=== PATIENT | female | born 1995 | race Caucasian/White ===

== ENCOUNTER → 2017-04-30 | Outpatient (CLI) | payer BC ==
[2017-05-04 01:31] LABS: CHLAMYDIA TRACH RNA*** NOT DETECTED (NOT DETECTED); GC (NEIS GONORRHOEAE)RNA** NOT DETECTED (NOT DETECTED)
== END | disposition home or self-care (01) ==
LOC: C.LABSPEC 13:52
PROVIDERS: ATTEND Physician Assistant
DX: Z01.419 Encounter for gynecological examination (general) (routine) without abnormal findings (principal)

== ENCOUNTER 2022-03-05 07:43 | Inpatient (IN) ==
[2022-03-05] MEDS ORDERED: OXYTOCIN 30 UNITS/500 ML BAG IV PRN (09:04)
[2022-03-05 09:59] LABS: Hematocrit (blood only) 36.6 % (37-47); Hemoglobin 12.7 g/dL (12.0-16.0); Mean Corpuscular Hemoglobin 31.1 pg (25-34); Mean Corpuscular Hgb Conc 34.7 g/dL (32-36); Mean Corpuscular Volume 89.5 fL (80-100); Mean Platelet Volume 11.3 fL (7.4-10.4); Nucleated RBC # (auto) 0.32 K/uL (0-0); Nucleated RBC % (auto) 2.3 %; Platelet Count 236 K/uL (130-400); RDW Coefficient of Variation 13.5 % (11.5-14.5); RDW Standard Deviation 44.2 fL (36.4-46.3); Red Blood Count 4.09 M/uL (4.2-5.4); White Blood Count 14.12 K/uL (4.8-10.8)
[2022-03-05] MEDS: LACTATED RINGER'S 1,000 ML IV PRN ×2 (10:36→11:40)
[2022-03-05] MEDS ORDERED: SODIUM CHLORIDE 0.9% 1000ML 1,000 ML IV PRN (10:37)
[2022-03-05] MEDS ORDERED: DEXTROSE 50% 50 ML SYRINGE IV PRN (10:37)
[2022-03-05] MEDS ORDERED: INSULIN REGULAR 250 UNITS in SODIUM CHLORIDE 0.9% 247.5 ML IV PRN (10:37)
--- NOTE | 2022-03-05 10:39 | History & Physical Report ---
Date of Service March 05, 2022 Assessment & Plan (1) Cholestasis during , antepartum: Plan: Admit to L&D. EFM/toco. Labs. Diabetes insulin/D5 protocol ordered. Will plan for epidural, will anticipate getting a better cervix exam when patient is more comfortable. Pitocin. Admission and Anticipated Discharge Date Admission Date: March 05, 2022 History of Present Illness Chief Complaint: IOL for cholestasis of Primary Care Provider: Darren Whitaker MD 26yo @ 10/20 here for IOL. She has symptomatic cholestasis of with elevated bile acids, has been recommended for delivery between 36 and 37w. Additionally, she is DM type 2, on insulin during the . Rec'd 2 doses of celestone, 24h apart. GBS neg. Polyhydramnios, 9cm on 03/02 US. Cephalic. [place] bulb last night, fell out prior to her leaving L&D. Allergies Allergy/AdvReac Type Severity Reaction Status Date / Time No Known Drug Allergies Allergy Unknown Verified 03/05/22 08:01 Home Medications Medication Instructions Recorded Confirmed Type prenat.vits,elke,[id number] 1 ea PO DAILY 01/27/21 03/04/22 History pen needle, diabetic 32 gauge x #120 ea 10/31/21 03/04/22 Rx 5/32" (BD Ultra-Fine [place] Pen Needle) acetone (urine) test (Ketone Urine #50 ea 11/14/21 03/04/22 Rx Test) lancets (Accu-Chek Softclix #150 ea 01/07/22 03/04/22 Rx Lancets) blood sugar diagnostic (Accu-Chek #150 ea 01/08/22 03/04/22 Rx Kimberly Plus test strp) blood-glucose meter (Accu-Chek #1 ea 01/08/22 03/04/22 Rx Kimberly Plus Meter) aspirin 81 mg tablet,delayed 81 mg PO DAILY 01/26/22 03/05/22 History release (Adult Low Dose Aspirin) insulin detemir U-100 100 unit/mL 26 unit SUBCUT HS ml 02/23/22 03/05/22 History (3 mL) subcutaneous pen (Levemir FlexTouch U-100 Insulin) insulin glulisine U-100 100 20 unit SUBCUT DAILY ml 02/23/22 03/05/22 History unit/mL subcutaneous pen (Apidra SoloStar U-100 Insulin) Patient History Medical History Obesity T2DM (type 2 diabetes mellitus) Surgical History No history of previous surgery Family History Mother Hepatitis Grandfather (Paternal) Colorectal cancer Uncle Colorectal cancer Denies family history of Ovarian cancer Breast cancer Uterine cancer Social History Smoking Status: Never smoker Hx Alcohol Use: No Hx Substance Use: No Preferred Language: Austrian Communication Ability: Effective Hybrid [employer]iv[employer] Trader Required: No Beliefs That Will Affect Care: None marital status: Single marital status details: kelley Starr (33) [phone] Current Living Situation: Significant Other Current Living Situation Comment: lives with FOCeasar, 1 dog. 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 Feels Safe at Home: Yes Safety Concerns: Feels Safe At This Time Review of Systems All systems reviewed & are unremarkable except as noted in HPI & below Physical Exam Physical Exam: FHT Cat 1 [place] none SVE unable to fully get to cervix d/t patient discomfort with exam. Cervix is presumably 4cm d/t [place] balloon falling out last night. 4/50/- 3/mod/mid, EFW 6-7 Limited bedside US: cephalic, +movement, +cardiac activity, large amount of fluid Constitutional: WD/WN, vitals as above Respiratory: normal respiratory effort, lungs clear to auscultation no respiratory distress Cardiovascular: Rate/Rhythm: regular rate and regular rhythm Gastrointestinal (Abdomen): Inspection/Auscultation: abdomen normal to inspection Percussion/Palpation: abdomen soft; abdomen nontender Gravid. No s/s chorio or abruption. Skin: no rashes, warm and dry Psychiatric: A+Ox3, euthymic affect Results & Data ([facility]) Vital Signs (Past 12 Hours) Vital Signs Temp Pulse Resp BP 03/05/22 08:07 36.8 C 101 H 18 128/70 03/05/22 07:57 101 H 128/70 Coding Level of Care Code None Diagnoses Cholestasis during , antepartum O26.619; K83.1
[2022-03-05] MEDS: CALCIUM CARBONATE 500 MG CHEWABLE TAB PO PRN ×2 (10:53→15:45)
[2022-03-05] MEDS: OXYTOCIN 30 UNITS/500 ML BAG IV PRN (11:04)
[2022-03-05] MEDS: DEXTROSE 5% 1,000 ML IV PRN ×2 (12:36→23:42)
[2022-03-05] MEDS ORDERED: ePHEDrine sulfate 50 MG/ML AMP ONE (12:53)
[2022-03-05] MEDS ORDERED: SODIUM CHLORIDE 0.9% INJ 10 ML VIAL ONE (12:54)
[2022-03-05] MEDS ORDERED: fentaNYL citrate 100 MCG/2 ML VIAL ONE (12:54)
[2022-03-05] MEDS ORDERED: fentaNYL 2MCG/ML ROPIVACAINE 1.25MG/ML 100 ML BAG EPI ONE (12:54)
[2022-03-05] MEDS ORDERED: BUPIVACAINE 0.25% 30 ML VIAL ONE (12:54)
[2022-03-05] MEDS ORDERED: NALOXONE HCL 1 MG in SODIUM CHLORIDE 0.9% 1000ML 1,000 ML IV PRN (13:16)
[2022-03-05] MEDS ORDERED: ONDANSETRON INJ 2 MG/ML 2 ML VIAL IV PRN (13:16)
[2022-03-05] MEDS ORDERED: diphenhydrAMINE 50 MG/ML VIAL IV PRN (13:16)
[2022-03-05] MEDS ORDERED: NALBUPHINE HCL INJ 10 MG/ML AMP IV PRN (13:16)
[2022-03-05] MEDS ORDERED: ePHEDrine sulfate 50 MG/ML AMP IV PRN (13:16)
[2022-03-05] MEDS ORDERED: NALOXONE HCL 0.4 MG/1 ML VIAL/CARP IV PRN (13:16)
--- NOTE | 2022-03-05 13:24 | Anesthesiology Consultation ---
Date of Service March 05, 2022 Assessment & Plan (1) Encounter for pre-operative examination: Chart Review Chart Review: Acceptable Risk for Labor Epidural Consults Requested none ASA ASA2 Proposed Anesthesia Anesthesia Type: Labor Epidural Risk / Benefits Reviewed With: PT / POA / Parent / Guardian, Accepts Plan and Informed Consent Obtained History Height/Weight Height: 5 ft 3 in Weight: 92.323 kg Allergies Allergy/AdvReac Type Severity Reaction Status Date / Time No Known Drug Allergies Allergy Unknown Verified 03/05/22 08:01 Medications Home Medications Medication Instructions Recorded Confirmed Last Taken prenat.vits,elke,[id number]-xynoj 1 ea PO DAILY 01/27/21 03/04/22 03/05/22 01:00 pen needle, diabetic 32 gauge x #120 ea 10/31/21 03/04/22 Unknown " (BD Ultra-Fine Moriah Pen Needle) acetone (urine) test (Ketone Urine #50 ea 11/14/21 03/04/22 Unknown Test) lancets (Accu-Chek Softclix #150 ea 01/07/22 03/04/22 Unknown Lancets) blood sugar diagnostic (Accu-Chek #150 ea 01/08/22 03/04/22 Unknown Kimberly Plus test strp) blood-glucose meter (Accu-Chek #1 ea 01/08/22 03/04/22 Unknown Kimberly Plus Meter) aspirin 81 mg tablet,delayed 81 mg PO DAILY 01/26/22 03/05/22 03/03/22 21:00 release (Adult Low Dose Aspirin) insulin detemir U-100 100 unit/mL 26 unit SUBCUT HS ml 02/23/22 03/05/22 03/05/22 01:00 (3 mL) subcutaneous pen (Levemir FlexTouch U-100 Insulin) insulin glulisine U-100 100 20 unit SUBCUT DAILY ml 02/23/22 03/05/22 03/05/22 06:30 unit/mL subcutaneous pen (Apidra SoloStar U-100 Insulin) Active Medications Generic Name Dose Route Start Last Admin Trade Name Freq PRN Reason Stop Dose Admin Calcium Carbonate 1,500 mg 03/05/22 10:33 03/05/22 10:53 Calcium Carbonate 500 Mg Chewable Tab PO 04/04/22 10:32 1,500 mg Q6 PRN Administration Indigestion Oxytocin 30 units in 500 mls @ 9 mls/hr 03/05/22 09:04 03/05/22 13:05 Pitocin IV 03/07/22 09:03 0.54 units/hr .Q24H PRN 9 mls/hr Labor Induction/Augmentation Titration Protocol 0.54 UNITS/HR Lactated Ringer's 1,000 mls @ 125 mls/hr 03/05/22 09:04 03/05/22 11:40 Lr IV 03/07/22 09:03 125 mls/hr .Q8H PRN Administration L&D Protocol Protocol Dextrose 1,000 mls @ 100 mls/hr 03/05/22 10:37 03/05/22 12:36 D5w IV 04/04/22 10:36 100 mls/hr .Q10H PRN Administration BSG 180 or below Protocol Past Medical History Medical History Obesity T2DM (type 2 diabetes mellitus) Exercise / Class Metabolic Activity II 4-5 Yardwork/Stairs/Walk up hill Past Family History Family History Mother Hepatitis Grandfather (Paternal) Colorectal cancer Uncle Colorectal cancer Denies family history of Ovarian cancer Breast cancer Uterine cancer Past Surgical History Surgical History No history of previous surgery Past Anesthesia History No Hx of Anesthesia Complications and No Family Hx of Anesthesia Complications History of PONV No Hx of PONV and No Hx of Motion Sickness Social History Smoking Status: Never smoker Hx Alcohol Use: No Hx Substance Use: No substance use type: does not use Physical Exam Vital Signs Last Vital Signs Temp 98.2 F 03/05/22 08:07 Pulse 91 H 03/05/22 13:21 Resp 18 03/05/22 08:07 BP 136/80 03/05/22 13:21 Pulse Ox 99 03/05/22 13:17 ENMT Mouth: no dentition abnormality Thyromental Distance: > or= 3.5 Finger Breadths Mallampati Class: II Neck normal visual inspection Respiratory normal respiratory effort Auscultation: lungs clear to auscultation bilaterally Cardiovascular Rate/Rhythm: regular rate and regular rhythm Testing Laboratory Results 03/05/22 09:36 03/05/22 03/05/22 03/05/22 12:34 11:22 09:04 POC Glucose 79 91 124 H
[2022-03-05] MEDS ORDERED: FAMOTIDINE 20 MG TAB PO STA (14:20)
--- NOTE | 2022-03-05 14:53 | Labor Progress Brief Note ---
Date of Service March 05, 2022 Subjective Comfortable with epidural. FHT Cat 1 [place] Q 2-3 SVE /-3 - baby is still high, however head IS palpable now. Continue pitocin. Head is not well engaged in pelvis, do not recommend AROM at this time. Assessment & Plan Admission and Anticipated Discharge Date Admission Date: March 05, 2022 Results & Data ([facility]) Vital Signs (Past 12 Hours) Vital Signs Temp Pulse Resp BP Pulse Ox 03/05/22 14:47 94 H 100 03/05/22 14:43 82 134/87 03/05/22 14:42 78 100 03/05/22 14:37 89 100 03/05/22 14:32 127 H 99 03/05/22 14:27 100 H 160/93 H 100 03/05/22 14:22 97 H 99 03/05/22 14:17 92 H 100 03/05/22 14:12 99 H 139/94 99 03/05/22 14:07 99 H 100 03/05/22 14:02 94 H 99 03/05/22 14:00 36.7 C 16 03/05/22 13:57 90 98 03/05/22 13:56 97 H 123/79 03/05/22 13:54 81 126/81 03/05/22 13:52 79 137/85 98 03/05/22 13:47 88 98 03/05/22 13:42 97 H 97 03/05/22 13:37 100 H 98 03/05/22 13:32 88 98 03/05/22 13:27 96 H 99 03/05/22 13:22 103 H 98 03/05/22 13:21 91 H 136/80 03/05/22 13:17 95 H 99 03/05/22 13:12 93 H 98 03/05/22 13:07 92 H 98 03/05/22 08:07 36.8 C 101 H 18 128/70 03/05/22 07:57 101 H 128/70 Coding Level of Care Code None
--- NOTE | 2022-03-05 18:55 | Labor Progress Brief Note ---
Date of Service March 05, 2022 Subjective Comfortable with epidural. FHT Cat 1 [place] Q 2-4 Pit at 19 SVE 4-5/80/-2 station has moved into the pelvis more than previous exam, therefore AROM performed for copious amount of clear fluid. Assessment & Plan Admission and Anticipated Discharge Date Admission Date: March 05, 2022 Results & Data ([facility]) Vital Signs (Past 12 Hours) Vital Signs Temp Pulse Resp BP Pulse Ox 03/05/22 18:47 92 H 96 03/05/22 18:42 88 98 03/05/22 18:39 86 143/79 H 03/05/22 18:37 75 97 03/05/22 18:32 76 97 03/05/22 18:27 77 96 03/05/22 18:24 80 140/82 03/05/22 18:22 68 97 03/05/22 18:17 75 96 03/05/22 18:12 79 98 03/05/22 18:10 78 143/77 H 03/05/22 18:07 78 97 03/05/22 18:02 81 98 03/05/22 17:57 73 98 03/05/22 17:55 96 H 125/77 03/05/22 17:52 106 H 97 03/05/22 17:47 107 H 98 03/05/22 17:42 95 H 99 03/05/22 17:41 99 H 135/78 03/05/22 17:37 92 H 98 03/05/22 17:32 84 98 03/05/22 17:27 84 97 03/05/22 17:24 89 132/75 03/05/22 17:22 76 97 03/05/22 17:17 83 97 03/05/22 17:12 93 H 99 03/05/22 17:10 88 142/84 H 03/05/22 17:07 85 98 03/05/22 17:02 84 99 03/05/22 16:57 97 H 99 03/05/22 16:54 96 H 131/88 03/05/22 16:52 90 98 03/05/22 16:47 89 98 03/05/22 16:42 101 H 99 03/05/22 16:39 101 H 129/81 03/05/22 16:37 99 H 100 03/05/22 16:32 90 99 03/05/22 16:27 89 99 03/05/22 16:24 85 134/85 03/05/22 16:22 88 99 03/05/22 16:17 85 100 03/05/22 16:15 36.7 C 03/05/22 16:12 92 H 100 03/05/22 16:07 91 H 99 03/05/22 16:02 83 100 03/05/22 15:57 82 99 03/05/22 15:54 93 H 118/55 L 03/05/22 15:52 94 H 99 03/05/22 15:47 124 H 99 03/05/22 15:42 86 98 03/05/22 15:39 88 149/88 H 03/05/22 15:37 84 100 03/05/22 15:32 88 100 03/05/22 15:27 82 97 03/05/22 15:24 86 141/81 H 91 03/05/22 15:22 87 97 03/05/22 15:17 75 98 03/05/22 15:12 76 98 03/05/22 15:10 78 153/88 H 03/05/22 15:07 78 99 03/05/22 15:02 93 H 99 03/05/22 14:57 87 99 03/05/22 14:52 79 98 03/05/22 14:47 94 H 100 03/05/22 14:43 82 134/87 03/05/22 14:42 78 100 03/05/22 14:37 89 100 03/05/22 14:32 127 H 99 03/05/22 14:27 100 H 160/93 H 100 03/05/22 14:22 97 H 99 03/05/22 14:17 92 H 100 03/05/22 14:12 99 H 139/94 99 03/05/22 14:07 99 H 100 03/05/22 14:02 94 H 99 03/05/22 14:00 36.7 C 16 03/05/22 13:57 90 98 03/05/22 13:56 97 H 123/79 03/05/22 13:54 81 126/81 03/05/22 13:52 79 137/85 98 03/05/22 13:47 88 98 03/05/22 13:42 97 H 97 03/05/22 13:37 100 H 98 03/05/22 13:32 88 98 03/05/22 13:27 96 H 99 03/05/22 13:22 103 H 98 03/05/22 13:21 91 H 136/80 03/05/22 13:17 95 H 99 03/05/22 13:12 93 H 98 03/05/22 13:07 92 H 98 03/05/22 08:07 36.8 C 101 H 18 128/70 03/05/22 07:57 101 H 128/70 Coding Level of Care Code None
--- NOTE | 2022-03-05 22:39 | Labor Progress Brief Note ---
Date of Service March 05, 2022 Subjective Comfortable, but feeling a bit more pressure. FHT Cat 1 [place] Q2-4 SVE //-1 FSE/IUPC placed. Assessment & Plan Admission and Anticipated Discharge Date Admission Date: March 05, 2022 Results & Data ([facility]) Vital Signs (Past 12 Hours) Vital Signs Temp Pulse Resp BP Pulse Ox 03/05/22 22:32 76 98 03/05/22 22:27 77 98 03/05/22 22:24 71 134/64 03/05/22 22:22 70 96 03/05/22 22:17 73 96 03/05/22 22:12 69 98 03/05/22 22:09 72 130/60 03/05/22 22:07 73 97 03/05/22 22:02 92 H 98 03/05/22 21:57 87 98 03/05/22 21:55 93 H 146/80 H 03/05/22 21:52 81 97 03/05/22 21:47 108 H 98 03/05/22 21:44 86 147/73 H 03/05/22 21:42 89 98 03/05/22 21:39 85 143/76 H 03/05/22 21:37 91 H 99 03/05/22 21:32 79 98 03/05/22 21:27 74 99 03/05/22 21:24 74 128/62 03/05/22 21:22 74 97 03/05/22 21:17 73 97 03/05/22 21:12 72 96 03/05/22 21:09 74 127/65 03/05/22 21:07 75 98 03/05/22 21:02 71 98 03/05/22 21:00 37.4 C 03/05/22 20:57 71 97 03/05/22 20:54 70 113/59 L 03/05/22 20:52 71 96 03/05/22 20:47 74 96 03/05/22 20:42 74 97 03/05/22 20:39 88 135/82 03/05/22 20:37 84 98 03/05/22 20:32 70 95 03/05/22 20:27 73 95 03/05/22 20:24 73 121/57 L 03/05/22 20:22 72 95 03/05/22 20:17 70 97 03/05/22 20:12 71 96 03/05/22 20:09 67 116/57 L 03/05/22 20:07 67 96 03/05/22 20:02 81 97 03/05/22 20:00 18 03/05/22 19:57 71 96 03/05/22 19:54 70 119/58 L 03/05/22 19:52 69 96 03/05/22 19:47 71 96 03/05/22 19:43 84 93 03/05/22 19:42 96 H 97 03/05/22 19:39 89 131/81 03/05/22 19:37 76 96 03/05/22 19:32 104 H 98 03/05/22 19:27 92 H 97 03/05/22 19:25 86 139/84 03/05/22 19:22 77 97 03/05/22 19:20 37.2 C 18 03/05/22 19:17 86 97 03/05/22 19:12 92 H 97 03/05/22 19:09 86 136/76 03/05/22 19:07 92 H 96 03/05/22 19:02 85 97 03/05/22 18:57 82 97 03/05/22 18:54 80 143/81 H 03/05/22 18:52 81 98 03/05/22 18:50 36.8 C 18 03/05/22 18:47 92 H 96 03/05/22 18:42 88 98 03/05/22 18:39 86 143/79 H 03/05/22 18:37 75 97 03/05/22 18:32 76 97 03/05/22 18:27 77 96 03/05/22 18:24 80 140/82 03/05/22 18:22 68 97 03/05/22 18:17 75 96 03/05/22 18:12 79 98 03/05/22 18:10 78 143/77 H 03/05/22 18:07 78 97 03/05/22 18:02 81 98 03/05/22 17:57 73 98 03/05/22 17:55 96 H 125/77 03/05/22 17:52 106 H 97 03/05/22 17:47 107 H 98 03/05/22 17:42 95 H 99 03/05/22 17:41 99 H 135/78 03/05/22 17:37 92 H 98 03/05/22 17:32 84 98 03/05/22 17:27 84 97 03/05/22 17:24 89 132/75 03/05/22 17:22 76 97 03/05/22 17:17 83 97 03/05/22 17:12 93 H 99 03/05/22 17:10 88 142/84 H 03/05/22 17:07 85 98 03/05/22 17:02 84 99 03/05/22 16:57 97 H 99 03/05/22 16:54 96 H 131/88 03/05/22 16:52 90 98 03/05/22 16:47 89 98 03/05/22 16:42 101 H 99 03/05/22 16:39 101 H 129/81 03/05/22 16:37 99 H 100 03/05/22 16:32 90 99 03/05/22 16:27 89 99 03/05/22 16:24 85 134/85 03/05/22 16:22 88 99 03/05/22 16:17 85 100 03/05/22 16:15 36.7 C 03/05/22 16:12 92 H 100 03/05/22 16:07 91 H 99 03/05/22 16:02 83 100 03/05/22 15:57 82 99 03/05/22 15:54 93 H 118/55 L 03/05/22 15:52 94 H 99 03/05/22 15:47 124 H 99 03/05/22 15:42 86 98 03/05/22 15:39 88 149/88 H 03/05/22 15:37 84 100 03/05/22 15:32 88 100 03/05/22 15:27 82 97 03/05/22 15:24 86 141/81 H 91 03/05/22 15:22 87 97 03/05/22 15:17 75 98 03/05/22 15:12 76 98 03/05/22 15:10 78 153/88 H 03/05/22 15:07 78 99 03/05/22 15:02 93 H 99 03/05/22 14:57 87 99 03/05/22 14:52 79 98 03/05/22 14:47 94 H 100 03/05/22 14:43 82 134/87 06/22 14:42 78 100 03/05/22 14:37 89 100 03/05/22 14:32 127 H 99 03/05/22 14:27 100 H 160/93 H 100 03/05/22 14:22 97 H 99 03/05/22 14:17 92 H 100 03/05/22 14:12 99 H 139/94 99 03/05/22 14:07 99 H 100 03/05/22 14:02 94 H 99 03/05/22 14:00 36.7 C 16 03/05/22 13:57 90 98 03/05/22 13:56 97 H 123/79 03/05/22 13:54 81 126/81 03/05/22 13:52 79 137/85 98 03/05/22 13:47 88 98 03/05/22 13:42 97 H 97 03/05/22 13:37 100 H 98 03/05/22 13:32 88 98 03/05/22 13:27 96 H 99 03/05/22 13:22 103 H 98 03/05/22 13:21 91 H 136/80 03/05/22 13:17 95 H 99 03/05/22 13:12 93 H 98 03/05/22 13:07 92 H 98 Coding Level of Care Code None
[2022-03-05 23:46] LABS: Albumin Globulin Ratio 1.2 (0.9-2); Albumin Level 2.8 gm/dl (3.4-5.0); BUN Creatinine Ratio 18.2 (10-20); Bilirubin,Total 1.1 mg/dl (0.2-1.0); Calcium 9.3 mg/dl (8.5-10.1); Creatinine Clr Calc Pharmacy 55.8 ml/min; Est GFR (African American) 49.2 ml/min; Est GFR (Non-African American) 42.4 ml/min; Globulin 2.4 gm/dl (2.5-4.0); Potassium 3.7 mmol/L (3.5-5.1); Total Protein 5.2 gm/dl (6.0-8.3)
[2022-03-05 23:47] LABS: Hematocrit (blood only) 35.7 % (37-47); Hemoglobin 12.3 g/dL (12.0-16.0); Mean Corpuscular Hemoglobin 30.9 pg (25-34); Mean Corpuscular Hgb Conc 34.5 g/dL (32-36); Mean Corpuscular Volume 89.7 fL (80-100); Mean Platelet Volume 11.5 fL (7.4-10.4); Nucleated RBC # (auto) 0.35 K/uL (0-0); Platelet Count 196 K/uL (130-400); RDW Coefficient of Variation 13.7 % (11.5-14.5); RDW Standard Deviation 44.6 fL (36.4-46.3); Red Blood Count 3.98 M/uL (4.2-5.4)
[2022-03-06] MEDS: fentaNYL 2MCG/ML ROPIVACAINE 1.25MG/ML 100 ML BAG EPI PRN ×2 (01:04→09:05)
[2022-03-06] MEDS ORDERED: MAG SULFATE 4GM BOLUS FROM BAG IV ONE (02:42)
--- NOTE | 2022-03-06 03:13 | Labor Progress Brief Note ---
Date of Service March 06, 2022 Subjective Comfortable in room. snoring. FHT Cat 1 [place] Q 2-4, have decreased over the past hour or so - were previously adequate. SVE /1 Discussed lab results with patient - liver enzymes have more than doubled, creatinine is elevated. Platelets are normal. BPs have fluxuated between elevated and normal. Asymptomatic - no AQUINO, vision changes. Given these lab findings, I discussed with patient that I would recommend treating for preeclampsia with magnesium. Reviewed RBA/side effects. Questions answered. While LFTs may be elevated with cholestasis, they typically do not double - hers have done more than this. Will plan for magnesium and Q6h lab checks. Patient agreeable. Assessment & Plan Admission and Anticipated Discharge Date Admission Date: March 05, 2022 Results & Data ([facility]) Vital Signs (Past 12 Hours) Vital Signs Temp Pulse Resp BP Pulse Ox 03/06/22 03:09 87 137/74 03/06/22 03:07 77 97 03/06/22 03:02 89 98 03/06/22 02:58 74 94 03/06/22 02:57 78 94 03/06/22 02:54 75 135/63 03/06/22 02:52 77 95 03/06/22 02:47 81 96 03/06/22 02:42 70 95 03/06/22 02:39 88 123/74 03/06/22 02:37 67 95 03/06/22 02:33 71 94 03/06/22 02:32 70 95 03/06/22 02:28 70 94 03/06/22 02:27 71 94 03/06/22 02:24 59 L 124/60 03/06/22 02:22 72 97 03/06/22 02:21 74 94 03/06/22 02:17 70 95 03/06/22 02:14 69 94 03/06/22 02:12 69 94 03/06/22 02:10 69 125/58 L 03/06/22 02:07 68 95 03/06/22 02:02 70 94 03/06/22 02:00 68 94 03/06/22 01:57 70 95 03/06/22 01:55 64 124/60 03/06/22 01:53 69 94 03/06/22 01:52 70 94 03/06/22 01:47 69 95 03/06/22 01:42 69 97 03/06/22 01:39 71 127/60 03/06/22 01:37 70 95 03/06/22 01:32 65 96 03/06/22 01:27 64 95 03/06/22 01:25 62 118/58 L 94 03/06/22 01:22 65 95 03/06/22 01:17 70 96 03/06/22 01:12 87 97 03/06/22 01:09 102 H 135/78 03/06/22 01:07 88 97 03/06/22 01:02 89 98 03/06/22 00:57 82 97 03/06/22 00:54 75 141/77 H 03/06/22 00:52 85 98 03/06/22 00:47 94 H 98 03/06/22 00:42 84 98 03/06/22 00:40 83 139/72 03/06/22 00:37 73 98 03/06/22 00:32 81 97 03/06/22 00:27 70 97 03/06/22 00:25 69 135/67 03/06/22 00:22 74 97 03/06/22 00:17 80 97 03/06/22 00:12 78 97 03/06/22 00:09 72 147/75 H 03/06/22 00:07 86 98 03/06/22 00:02 71 98 03/05/22 23:57 81 98 03/05/22 23:54 82 141/75 H 03/05/22 23:52 80 97 03/05/22 23:47 75 97 03/05/22 23:42 95 H 98 03/05/22 23:39 82 136/64 03/05/22 23:37 87 97 03/05/22 23:32 75 98 06 23:27 68 96 03/05/22 23:24 72 138/67 03/05/22 23:22 72 97 03/05/22 23:17 65 97 03/05/22 23:12 67 98 03/05/22 23:10 60 131/60 03/05/22 23:07 69 96 03/05/22 23:02 74 98 03/05/22 23:00 37.1 C 18 03/05/22 22:57 74 98 03/05/22 22:55 71 141/73 H 03/05/22 22:52 76 98 03/05/22 22:47 102 H 99 03/05/22 22:42 78 98 03/05/22 22:39 86 159/76 H 03/05/22 22:37 72 98 03/05/22 22:32 76 98 03/05/22 22:27 77 98 03/05/22 22:24 71 134/64 03/05/22 22:22 70 96 03/05/22 22:17 73 96 03/05/22 22:12 69 98 03/05/22 22:09 72 130/60 03/05/22 22:07 73 97 03/05/22 22:02 92 H 98 03/05/22 21:57 87 98 03/05/22 21:55 93 H 146/80 H 03/05/22 21:52 81 97 03/05/22 21:47 108 H 98 03/05/22 21:44 86 147/73 H 03/05/22 21:42 89 98 03/05/22 21:39 85 143/76 H 03/05/22 21:37 91 H 99 03/05/22 21:32 79 98 03/05/22 21:27 74 99 03/05/22 21:24 74 128/62 03/05/22 21:22 74 97 03/05/22 21:17 73 97 03/05/22 21:12 72 96 03/05/22 21:09 74 127/65 03/05/22 21:07 75 98 03/05/22 21:02 71 98 03/05/22 21:00 37.4 C 03/05/22 20:57 71 97 03/05/22 20:54 70 113/59 L 03/05/22 20:52 71 96 03/05/22 20:47 74 96 03/05/22 20:42 74 97 03/05/22 20:39 88 135/82 03/05/22 20:37 84 98 03/05/22 20:32 70 95 03/05/22 20:27 73 95 03/05/22 20:24 73 121/57 L 03/05/22 20:22 72 95 03/05/22 20:17 70 97 03/05/22 20:12 71 96 03/05/22 20:09 67 116/57 L 03/05/22 20:07 67 96 03/05/22 20:02 81 97 03/05/22 20:00 18 03/05/22 19:57 71 96 03/05/22 19:54 70 119/58 L 03/05/22 19:52 69 96 03/05/22 19:47 71 96 03/05/22 19:43 84 93 03/05/22 19:42 96 H 97 03/05/22 19:39 89 131/81 03/05/22 19:37 76 96 03/05/22 19:32 104 H 98 03/05/22 19:27 92 H 97 03/05/22 19:25 86 139/84 03/05/22 19:22 77 97 03/05/22 19:20 37.2 C 18 03/05/22 19:17 86 97 03/05/22 19:12 92 H 97 03/05/22 19:09 86 136/76 03/05/22 19:07 92 H 96 03/05/22 19:02 85 97 03/05/22 18:57 82 97 03/05/22 18:54 80 143/81 H 03/05/22 18:52 81 98 03/05/22 18:50 36.8 C 18 03/05/22 18:47 92 H 96 03/05/22 18:42 88 98 03/05/22 18:39 86 143/79 H 03/05/22 18:37 75 97 03/05/22 18:32 76 97 03/05/22 18:27 77 96 03/05/22 18:24 80 140/82 03/05/22 18:22 68 97 03/05/22 18:17 75 96 03/05/22 18:12 79 98 03/05/22 18:10 78 143/77 H 03/05/22 18:07 78 97 03/05/22 18:02 81 98 03/05/22 17:57 73 98 03/05/22 17:55 96 H 125/77 03/05/22 17:52 106 H 97 03/05/22 17:47 107 H 98 03/05/22 17:42 95 H 99 03/05/22 17:41 99 H 135/78 03/05/22 17:37 92 H 98 03/05/22 17:32 84 98 03/05/22 17:27 84 97 03/05/22 17:24 89 132/75 03/05/22 17:22 76 97 03/05/22 17:17 83 97 03/05/22 17:12 93 H 99 03/05/22 17:10 88 142/84 H 03/05/22 17:07 85 98 03/05/22 17:02 84 99 03/05/22 16:57 97 H 99 03/05/22 16:54 96 H 131/88 03/05/22 16:52 90 98 03/05/22 16:47 89 98 03/05/22 16:42 101 H 99 03/05/22 16:39 101 H 129/81 03/05/22 16:37 99 H 100 03/05/22 16:32 90 99 03/05/22 16:27 89 99 03/05/22 16:24 85 134/85 03/05/22 16:22 88 99 03/05/22 16:17 85 100 03/05/22 16:15 36.7 C 03/05/22 16:12 92 H 100 03/05/22 16:07 91 H 99 03/05/22 16:02 83 100 03/05/22 15:57 82 99 03/05/22 15:54 93 H 118/55 L 03/05/22 15:52 94 H 99 03/05/22 15:47 124 H 99 03/05/22 15:42 86 98 03/05/22 15:39 88 149/88 H 03/05/22 15:37 84 100 03/05/22 15:32 88 100 03/05/22 15:27 82 97 03/05/22 15:24 86 141/81 H 91 03/05/22 15:22 87 97 03/05/22 15:17 75 98 03/05/22 15:12 76 98 Coding Level of Care Code None
[2022-03-06] MEDS: MAGNESIUM SULFATE / WTR 40 GM/1,000 ML BAG IV SCH ×2 (03:26→20:56)
[2022-03-06] MEDS ORDERED: ceFAZolin 2000MG 2,000 MG/15 ML SYR IV SCH (06:00)
[2022-03-06] MEDS ORDERED: CITRIC ACID/SODIUM CITRATE 15 ML UDC PO SCH (06:00)
[2022-03-06 06:26] LABS: Hematocrit (blood only) 34.5 % (37-47); Hemoglobin 11.8 g/dL (12.0-16.0); Mean Corpuscular Hemoglobin 30.6 pg (25-34); Mean Corpuscular Hgb Conc 34.2 g/dL (32-36); Mean Corpuscular Volume 89.6 fL (80-100); Mean Platelet Volume 11.4 fL (7.4-10.4); Nucleated RBC # (auto) 0.36 K/uL (0-0); Platelet Count 175 K/uL (130-400); RDW Coefficient of Variation 13.6 % (11.5-14.5); RDW Standard Deviation 44.4 fL (36.4-46.3); Red Blood Count 3.85 M/uL (4.2-5.4); White Blood Count 12.13 K/uL (4.8-10.8)
[2022-03-06 06:59] LABS: Albumin Globulin Ratio 1.1 (0.9-2); Albumin Level 2.7 gm/dl (3.4-5.0); BUN Creatinine Ratio 17.4 (10-20); Bilirubin,Total 1.3 mg/dl (0.2-1.0); Calcium 9.1 mg/dl (8.5-10.1); Creatinine Clr Calc Pharmacy 57.2 ml/min; Est GFR (African American) 50.6 ml/min; Est GFR (Non-African American) 43.7 ml/min; Globulin 2.5 gm/dl (2.5-4.0); Magnesium Therapeutic L&D Only 3.9 mg/dL (4.0-8.0); Potassium 3.5 mmol/L (3.5-5.1); Total Protein 5.2 gm/dl (6.0-8.3)
--- NOTE | 2022-03-06 06:59 | Labor Progress Brief Note ---
Date of Service March 06, 2022 Subjective Comfortable with epidural. FHT Cat 1 [place] difficult to read IUPC - ?malfunction. IUPC removed during cervix exam with intention to replace, however with exam, head was too low - could not get new IUPC up and around. Therefore replaced with external toco. SVE 7-8/100/0 Morning labs still pending. Assessment & Plan Admission and Anticipated Discharge Date Admission Date: March 05, 2022 Results & Data ([facility]) Vital Signs (Past 12 Hours) Vital Signs Temp Pulse Resp BP Pulse Ox 03/06/22 06:52 101 H 98 03/06/22 06:47 96 H 96 03/06/22 06:44 100 H 134/76 03/06/22 06:42 100 H 97 03/06/22 06:37 110 H 98 03/06/22 06:32 120 H 97 03/06/22 06:29 115 H 137/71 03/06/22 06:27 111 H 97 03/06/22 06:22 116 H 97 03/06/22 06:17 104 H 98 03/06/22 06:14 96 H 127/68 03/06/22 06:12 92 H 96 03/06/22 06:07 104 H 97 03/06/22 06:02 95 H 97 03/06/22 06:00 105 H 18 137/72 03/06/22 05:57 90 96 03/06/22 05:52 102 H 96 03/06/22 05:47 97 H 97 03/06/22 05:44 105 H 125/62 03/06/22 05:42 103 H 97 03/06/22 05:37 105 H 97 03/06/22 05:32 102 H 96 03/06/22 05:30 18 03/06/22 05:29 84 123/59 L 94 03/06/22 05:27 96 H 96 03/06/22 05:22 94 H 96 03/06/22 05:17 85 97 03/06/22 05:15 75 108/53 L 03/06/22 05:12 76 95 03/06/22 05:07 84 96 03/06/22 05:02 78 95 03/06/22 04:59 81 113/59 L 93 03/06/22 04:57 81 95 03/06/22 04:52 96 H 95 03/06/22 04:47 77 94 03/06/22 04:44 77 105/53 L 03/06/22 04:42 77 94 03/06/22 04:37 77 94 03/06/22 04:32 83 94 03/06/22 04:30 75 16 105/52 L 03/06/22 04:27 77 94 03/06/22 04:22 77 95 03/06/22 04:19 77 94 03/06/22 04:17 77 95 03/06/22 04:15 18 03/06/22 04:14 76 111/55 L 94 03/06/22 04:12 77 95 03/06/22 04:08 77 94 03/06/22 04:07 81 94 03/06/22 04:03 75 94 03/06/22 04:02 78 95 03/06/22 04:00 37.1 C 18 03/06/22 03:59 75 110/55 L 03/06/22 03:57 77 95 03/06/22 03:52 77 95 03/06/22 03:47 81 96 03/06/22 03:45 18 03/06/22 03:44 84 105/52 L 03/06/22 03:42 79 95 03/06/22 03:37 77 95 03/06/22 03:32 80 97 03/06/22 03:27 72 96 03/06/22 03:25 18 03/06/22 03:24 71 132/64 03/06/22 03:22 74 96 03/06/22 03:17 74 97 03/06/22 03:12 88 97 03/06/22 03:09 87 137/74 03/06/22 03:07 77 97 03/06/22 03:02 89 98 03/06/22 03:00 37.4 C 03/06/22 02:58 74 94 03/06/22 02:57 78 94 03/06/22 02:54 75 135/63 03/06/22 02:52 77 95 03/06/22 02:47 81 96 03/06/22 02:42 70 95 03/06/22 02:39 88 123/74 03/06/22 02:37 67 95 03/06/22 02:33 71 94 03/06/22 02:32 70 95 03/06/22 02:28 70 94 03/06/22 02:27 71 94 03/06/22 02:24 59 L 124/60 03/06/22 02:22 72 97 03/06/22 02:21 74 94 03/06/22 02:17 70 95 03/06/22 02:14 69 94 03/06/22 02:12 69 94 03/06/22 02:10 69 125/58 L 03/06/22 02:07 68 95 03/06/22 02:02 70 94 03/06/22 02:00 68 94 03/06/22 01:57 70 95 03/06/22 01:55 64 124/60 03/06/22 01:53 69 94 03/06/22 01:52 70 94 03/06/22 01:47 69 95 03/06/22 01:42 69 97 03/06/22 01:39 71 127/60 03/06/22 01:37 70 95 03/06/22 01:32 65 96 03/06/22 01:27 64 95 03/06/22 01:25 62 118/58 L 94 03/06/22 01:22 65 95 03/06/22 01:17 70 96 03/06/22 01:12 87 97 03/06/22 01:09 102 H 135/78 03/06/22 01:07 88 97 03/06/22 01:02 89 98 03/06/22 01:00 37.1 C 03/06/22 00:57 82 97 03/06/22 00:54 75 141/77 H 03/06/22 00:52 85 98 03/06/22 00:47 94 H 98 03/06/22 00:42 84 98 03/06/22 00:40 83 139/72 03/06/22 00:37 73 98 03/06/22 00:32 81 97 03/06/22 00:27 70 97 03/06/22 00:25 69 135/67 03/06/22 00:22 74 97 03/06/22 00:17 80 97 03/06/22 00:12 78 97 03/06/22 00:09 72 147/75 H 03/06/22 00:07 86 98 03/06/22 00:02 71 98 03/05/22 23:57 81 98 03/05/22 23:54 82 141/75 H 03/05/22 23:52 80 97 06 23:47 75 97 06 23:42 95 H 98 03/05/22 23:39 82 136/64 06 23:37 87 97 06 23:32 75 98 06 23:27 68 96 06 23:24 72 138/67 03/05/22 23:22 72 97 03/05/22 23:17 65 97 06 23:12 67 98 06 23:10 60 131/60 03/05/22 23:07 69 96 03/05/22 23:02 74 98 06 23:00 37.1 C 18 03/05/22 22:57 74 98 06 22:55 71 141/73 H 03/05/22 22:52 76 98 03/05/22 22:47 102 H 99 03/05/22 22:42 78 98 03/05/22 22:39 86 159/76 H 03/05/22 22:37 72 98 03/05/22 22:32 76 98 03/05/22 22:27 77 98 03/05/22 22:24 71 134/64 03/05/22 22:22 70 96 03/05/22 22:17 73 96 03/05/22 22:12 69 98 03/05/22 22:09 72 130/60 03/05/22 22:07 73 97 03/05/22 22:02 92 H 98 03/05/22 21:57 87 98 03/05/22 21:55 93 H 146/80 H 03/05/22 21:52 81 97 03/05/22 21:47 108 H 98 06 21:44 86 147/73 H 03/05/22 21:42 89 98 06 21:39 85 143/76 H 03/05/22 21:37 91 H 99 03/05/22 21:32 79 98 03/05/22 21:27 74 99 06 21:24 74 128/62 03/05/22 21:22 74 97 06 21:17 73 97 03/05/22 21:12 72 96 03/05/22 21:09 74 127/65 03/05/22 21:07 75 98 03/05/22 21:02 71 98 03/05/22 21:00 37.4 C 03/05/22 20:57 71 97 03/05/22 20:54 70 113/59 L 03/05/22 20:52 71 96 03/05/22 20:47 74 96 03/05/22 20:42 74 97 03/05/22 20:39 88 135/82 03/05/22 20:37 84 98 03/05/22 20:32 70 95 03/05/22 20:27 73 95 03/05/22 20:24 73 121/57 L 03/05/22 20:22 72 95 03/05/22 20:17 70 97 03/05/22 20:12 71 96 03/05/22 20:09 67 116/57 L 03/05/22 20:07 67 96 03/05/22 20:02 81 97 03/05/22 20:00 18 03/05/22 19:57 71 96 03/05/22 19:54 70 119/58 L 03/05/22 19:52 69 96 03/05/22 19:47 71 96 03/05/22 19:43 84 93 03/05/22 19:42 96 H 97 03/05/22 19:39 89 131/81 03/05/22 19:37 76 96 03/05/22 19:32 104 H 98 03/05/22 19:27 92 H 97 03/05/22 19:25 86 139/84 03/05/22 19:22 77 97 03/05/22 19:20 37.2 C 18 03/05/22 19:17 86 97 03/05/22 19:12 92 H 97 03/05/22 19:09 86 136/76 03/05/22 19:07 92 H 96 03/05/22 19:02 85 97 Coding Level of Care Code None
[2022-03-06 12:27] LABS: Hematocrit (blood only) 37.1 % (37-47); Hemoglobin 12.6 g/dL (12.0-16.0); Mean Corpuscular Volume 88.3 fL (80-100); Mean Platelet Volume 11.6 fL (7.4-10.4); Nucleated RBC # (auto) 0.53 K/uL (0-0); Nucleated RBC % (auto) 3.1 %; Platelet Count 233 K/uL (130-400); RDW Coefficient of Variation 13.5 % (11.5-14.5); RDW Standard Deviation 43.2 fL (36.4-46.3); White Blood Count 17.22 K/uL (4.8-10.8)
[2022-03-06] MEDS: DEXTROSE 5% 1,000 ML IV PRN (12:32)
[2022-03-06 12:50] LABS: Albumin Globulin Ratio 1.2 (0.9-2); BUN Creatinine Ratio 14.9 (10-20); Bilirubin,Total 1.7 mg/dl (0.2-1.0); Calcium 9.1 mg/dl (8.5-10.1); Creatinine Clr Calc Pharmacy 54.8 ml/min; Est GFR (African American) 48.1 ml/min; Est GFR (Non-African American) 41.5 ml/min; Globulin 2.6 gm/dl (2.5-4.0); Magnesium Therapeutic L&D Only 6.8 mg/dL (4.0-8.0); Potassium 3.5 mmol/L (3.5-5.1); Total Protein 5.6 gm/dl (6.0-8.3)
[2022-03-06] MEDS ORDERED: ONDANSETRON INJ 2 MG/ML 2 ML VIAL IV PRN (13:23)
[2022-03-06] MEDS ORDERED: ePHEDrine sulfate 50 MG/ML AMP IV PRN ×2 (13:23→15:29)
[2022-03-06] MEDS ORDERED: NALOXONE HCL 0.4 MG/1 ML VIAL/CARP IV PRN ×2 (13:23→15:29)
[2022-03-06] MEDS ORDERED: NALBUPHINE HCL INJ 10 MG/ML AMP IV PRN ×2 (13:23→15:29)
[2022-03-06] MEDS ORDERED: fentaNYL 2MCG/ML ROPIVACAINE 1.25MG/ML 100 ML BAG EPI PRN (13:23)
[2022-03-06] MEDS ORDERED: NALOXONE HCL 1 MG in SODIUM CHLORIDE 0.9% 1000ML 1,000 ML IV PRN ×2 (13:23→15:29)
[2022-03-06] MEDS ORDERED: diphenhydrAMINE 50 MG/ML VIAL IV PRN ×2 (13:23→15:29)
[2022-03-06] MEDS: OXYTOCIN 30 UNITS/500 ML BAG IV PRN (14:25)
[2022-03-06] MEDS ORDERED: AZITHROMYCIN 500 MG in DEXTROSE 5% 250 ML IV SCH (14:59)
[2022-03-06] MEDS ORDERED: OXYTOCIN 10 UNITS/ML 10ML VIAL ONE (15:14)
[2022-03-06] MEDS ORDERED: LIDOCAINE 2%/EPINEPHRINE 1:200,000 20 ML SDV ONE (15:14)
--- NOTE | 2022-03-06 15:14 | Labor Progress Brief Note ---
Date of Service March 06, 2022 Subjective In to check pt Assessment & Plan (1) Cholestasis during , antepartum: (2) Polyhydramnios affecting : (3) Type 2 diabetes mellitus affecting , antepartum: Plan: Discussed that pit at 30, contractions inadequate. SVE has made some progress but not much from prior and pubic arch does feel very narrow still. Pt appears exhausted by the induction process as it has been going on near 36 hours. It has been previously discussed with the pt the concern that if able to get to 10cm, that there may still be CPD with the arch. We discussed continued attempt at induction vs considering due to failure to progress and maternal exhaustion. Discussed indications, risks, benefits, alternatives with risks including infection, bleeding, injury to adjacent structures (bowel, bladder, ureters, blood vessels, nerves, baby), possible need for blood transfusion and/or life saving hysterectomy, VTE. Consent reviewed in detail w/ pt and signed after all questions answered to her satisfaction. Pt and her had extensive discussion and desires to proceed with . Plan for ancef/stevie, anesthesia made aware Admission and Anticipated Discharge Date Admission Date: March 05, 2022 Physical Exam Genitourinary: SVE 8/80/0 EFM 150/mod/+accel/-decel [place] ctx inadeq Results & Data ([facility]) Vital Signs (Past 12 Hours) Vital Signs Temp Pulse Resp BP Pulse Ox 03/06/22 15:02 113 H 98 03/06/22 15:00 111 H 140/82 03/06/22 14:57 114 H 99 03/06/22 14:52 114 H 99 03/06/22 14:47 121 H 98 03/06/22 14:45 108 H 157/90 H 03/06/22 14:42 106 H 100 03/06/22 14:37 118 H 100 03/06/22 14:32 91 H 96 03/06/22 14:29 98 H 142/80 H 03/06/22 14:27 92 H 96 03/06/22 14:22 92 H 97 03/06/22 14:17 98 H 96 03/06/22 14:14 99 H 146/83 H 03/06/22 14:12 95 H 98 03/06/22 14:07 104 H 146/84 H 100 03/06/22 14:02 107 H 99 03/06/22 14:01 111 H 167/93 H 03/06/22 14:00 98.2 F 18 03/06/22 13:57 103 H 99 03/06/22 13:52 110 H 100 03/06/22 13:47 88 95 03/06/22 13:44 98 H 132/63 03/06/22 13:42 97 H 97 03/06/22 13:37 96 H 97 03/06/22 13:32 91 H 96 03/06/22 13:30 18 03/06/22 13:29 92 H 130/61 03/06/22 13:27 87 96 03/06/22 13:22 87 97 03/06/22 13:17 98 H 97 03/06/22 13:15 88 122/60 03/06/22 13:12 96 H 98 03/06/22 13:07 103 H 99 03/06/22 13:02 107 H 100 03/06/22 13:00 18 03/06/22 12:59 110 H 137/77 03/06/22 12:57 113 H 97 03/06/22 12:52 91 H 96 03/06/22 12:47 92 H 96 03/06/22 12:44 103 H 142/79 H 03/06/22 12:42 92 H 96 03/06/22 12:37 98 H 97 03/06/22 12:32 98 H 97 03/06/22 12:30 18 03/06/22 12:29 107 H 142/82 H 03/06/22 12:27 102 H 97 03/06/22 12:22 92 H 97 03/06/22 12:17 100 H 97 03/06/22 12:14 100 H 142/80 H 03/06/22 12:12 94 H 97 03/06/22 12:07 102 H 98 03/06/22 12:02 102 H 98 03/06/22 12:00 18 03/06/22 11:57 107 H 98 03/06/22 11:52 109 H 100 03/06/22 11:47 122 H 100 03/06/22 11:45 96 H 130/68 03/06/22 11:44 98.4 F 18 03/06/22 11:42 96 H 100 03/06/22 11:37 93 H 97 06/24/22 11:32 79 96 03/06/22 11:30 18 03/06/22 11:29 84 118/58 L 03/06/22 11:27 85 96 03/06/22 11:22 84 96 03/06/22 11:17 83 97 03/06/22 11:14 100 H 134/69 03/06/22 11:12 104 H 98 03/06/22 11:07 111 H 99 03/06/22 11:02 117 H 99 03/06/22 11:00 18 03/06/22 10:59 111 H 143/85 H 03/06/22 10:57 116 H 98 03/06/22 10:52 95 H 95 03/06/22 10:47 102 H 96 03/06/22 10:45 104 H 94 03/06/22 10:44 101 H 141/82 H 03/06/22 10:42 108 H 94 03/06/22 10:37 122 H 98 03/06/22 10:32 107 H 96 03/06/22 10:30 107 H 18 135/80 03/06/22 10:27 94 H 95 03/06/22 10:22 100 H 97 03/06/22 10:17 91 H 95 03/06/22 10:14 96 H 132/77 94 03/06/22 10:12 98 H 96 03/06/22 10:07 94 H 97 03/06/22 10:02 92 H 96 03/06/22 10:00 18 03/06/22 09:59 97 H 134/81 03/06/22 09:57 90 96 03/06/22 09:52 92 H 95 03/06/22 09:50 98 H 93 03/06/22 09:47 100 H 97 03/06/22 09:45 96 H 137/83 03/06/22 09:42 98.1 F 98 H 18 95 03/06/22 09:37 99 H 97 03/06/22 09:32 108 H 99 03/06/22 09:31 104 H 92 03/06/22 09:30 18 03/06/22 09:29 112 H 131/84 03/06/22 09:27 115 H 100 03/06/22 09:22 124 H 100 03/06/22 09:17 117 H 98 03/06/22 09:14 113 H 141/85 H 03/06/22 09:12 116 H 98 03/06/22 09:07 128 H 99 03/06/22 09:02 114 H 99 03/06/22 08:59 113 H 140/81 03/06/22 08:57 108 H 99 03/06/22 08:52 101 H 98 03/06/22 08:47 101 H 98 03/06/22 08:45 99 H 141/81 H 03/06/22 08:42 113 H 99 03/06/22 08:37 89 96 03/06/22 08:32 88 96 03/06/22 08:30 90 18 137/73 03/06/22 08:27 92 H 96 03/06/22 08:22 95 H 96 03/06/22 08:17 97 H 96 03/06/22 08:14 105 H 149/88 H 03/06/22 08:12 109 H 98 03/06/22 08:07 108 H 99 03/06/22 08:02 102 H 98 03/06/22 08:00 18 03/06/22 07:59 99 H 140/78 03/06/22 07:57 101 H 97 03/06/22 07:52 103 H 97 03/06/22 07:47 103 H 97 03/06/22 07:44 101 H 118/71 03/06/22 07:42 101 H 97 03/06/22 07:37 97 H 95 03/06/22 07:32 106 H 97 03/06/22 07:30 93 H 18 124/72 03/06/22 07:27 86 96 03/06/22 07:24 97.9 F 18 03/06/22 07:22 89 96 03/06/22 07:17 84 98 03/06/22 07:14 92 H 122/73 03/06/22 07:12 96 H 96 03/06/22 07:07 87 96 03/06/22 07:02 88 96 03/06/22 07:00 94 H 124/76 03/06/22 06:57 92 H 96 03/06/22 06:52 101 H 98 03/06/22 06:47 96 H 96 03/06/22 06:44 100 H 134/76 03/06/22 06:42 100 H 97 03/06/22 06:37 110 H 98 03/06/22 06:32 120 H 97 03/06/22 06:29 115 H 137/71 03/06/22 06:27 111 H 97 03/06/22 06:22 116 H 97 03/06/22 06:17 104 H 98 03/06/22 06:14 96 H 127/68 03/06/22 06:12 92 H 96 03/06/22 06:07 104 H 97 03/06/22 06:02 95 H 97 03/06/22 06:00 105 H 18 137/72 03/06/22 05:57 90 96 03/06/22 05:52 102 H 96 03/06/22 05:47 97 H 97 03/06/22 05:44 105 H 125/62 03/06/22 05:42 103 H 97 03/06/22 05:37 105 H 97 03/06/22 05:32 102 H 96 03/06/22 05:30 18 03/06/22 05:29 84 123/59 L 94 03/06/22 05:27 96 H 96 03/06/22 05:22 94 H 96 03/06/22 05:17 85 97 03/06/22 05:15 75 108/53 L 03/06/22 05:12 76 95 03/06/22 05:07 84 96 03/06/22 05:02 78 95 03/06/22 04:59 81 113/59 L 93 03/06/22 04:57 81 95 03/06/22 04:52 96 H 95 03/06/22 04:47 77 94 03/06/22 04:44 77 105/53 L 03/06/22 04:42 77 94 03/06/22 04:37 77 94 03/06/22 04:32 83 94 03/06/22 04:30 75 16 105/52 L 03/06/22 04:27 77 94 03/06/22 04:22 77 95 03/06/22 04:19 77 94 03/06/22 04:17 77 95 03/06/22 04:15 18 03/06/22 04:14 76 111/55 L 94 03/06/22 04:12 77 95 03/06/22 04:08 77 94 03/06/22 04:07 81 94 06/24/22 04:03 75 94 03/06/22 04:02 78 95 03/06/22 04:00 98.8 F 18 03/06/22 03:59 75 110/55 L 03/06/22 03:57 77 95 03/06/22 03:52 77 95 03/06/22 03:47 81 96 03/06/22 03:45 18 03/06/22 03:44 84 105/52 L 03/06/22 03:42 79 95 03/06/22 03:37 77 95 03/06/22 03:32 80 97 03/06/22 03:27 72 96 03/06/22 03:25 18 03/06/22 03:24 71 132/64 03/06/22 03:22 74 96 03/06/22 03:17 74 97 03/06/22 03:12 88 97 03/06/22 03:09 87 137/74 03/06/22 03:07 77 97 Coding Level of Care Code None Diagnoses Cholestasis during , antepartum O26.619; K83.1 Polyhydramnios affecting O40.9XX0 Type 2 diabetes mellitus affecting , antepartum O24.119
[2022-03-06] MEDS ORDERED: MoRPHine SULFATE PF 1 MG/ML 10 ML AMP/VIAL ONE (15:19)
[2022-03-06] MEDS ORDERED: MoRPHine SULFATE 2 MG/ML CARP IV PRN (15:29)
[2022-03-06] MEDS ORDERED: LACTATED RINGER'S 500 ML IV PRN (15:29)
[2022-03-06] MEDS ORDERED: MoRPHine SULFATE PF 1 MG/ML 10 ML AMP/VIAL EPI ONE (15:29)
[2022-03-06] MEDS ORDERED: CITRIC ACID/SODIUM CITRATE 15 ML UDC ONE (15:29)
[2022-03-06] MEDS ORDERED: NALOXONE HCL 0.08 MG in SYRINGE 1.8 ML IV PRN (15:29)
[2022-03-06] MEDS ORDERED: KETOROLAC 30 MG/ML VIAL IV PRN (15:29)
[2022-03-06] MEDS ORDERED: NO NARCOTICS OR SEDATIVES SCH (15:30)
[2022-03-06] MEDS ORDERED: SODIUM CHLORIDE 0.9% 1000ML 1,000 ML IV SCH (15:30)
[2022-03-06] MEDS ORDERED: DC INTRASPINAL MORPHINE SCH (15:30)
[2022-03-06] MEDS ORDERED: fentaNYL citrate 100 MCG/2 ML VIAL ONE (15:53)
[2022-03-06] MEDS ORDERED: ONDANSETRON INJ 2 MG/ML 2 ML VIAL ONE (15:54)
[2022-03-06] MEDS ORDERED: DIPHTHERIA/TETANUS/PERTUSSIS 0.5 ML SYR/VIAL IM ONE (16:30)
[2022-03-06] MEDS ORDERED: HYDROCORTISONE ACETATE 25 MG SUPP PR PRN (16:30)
[2022-03-06] MEDS ORDERED: BENZOCAINE 20% AER SPR 82.5 GM CAN EXT PRN (16:30)
[2022-03-06] MEDS ORDERED: LACTATED RINGER'S 1,000 ML IV SCH (16:30)
[2022-03-06] MEDS ORDERED: SENNA 8.6 MG TAB PO PRN (16:30)
[2022-03-06] MEDS ORDERED: MAGNESIUM HYDROXIDE SUSP 30 ML UDC PO PRN (16:30)
--- NOTE | 2022-03-06 16:58 | Operative Report ---
PG Post Operative Report Pre & Post Diagnosis Operation Date: 03/06/22 15:20 Pre-Op Diagnosis: 1. at 36 weeks and 3 days 2. Cholestasis 3. Type II DM- insulin dependent 4. Pre- eclampsia with severe features 5. Maternal exhaustion 6. Arrest of dilation Post-Op Diagnosis: Same I identified the patient and participated in the time-out.: Yes Procedure Operation Date: 03/06/22 15:20 Actual Procedures p Primary Low Transverse Section in LD with the of a live male child at 1605. (Bilateral) - Latoya Bosotn MD Surgeon Latoya Boston MD [employer] Yumiko ARNOLD Estimated Blood Loss 600 Findings Consistent with Post-Op Diagnosis Normal appearing uterus, bilateral fallopian tubes and ovaries. Viable male with APGARs of 7 and 8 at 1 and 5 minutes respectively. head was felt to have molding against the narrow pubic arch in the pelvis. Specimens Placenta, cord gases, cord blood Drains Israel draining clear urine Anesthesia Type L&D Only Epidural Exists Complications none Disposition Accompanied Patient To Recovery: Yes Disposition: L&D Indications 26 y/o at 36 3/7 wga presents for IOL due to cholestasis of . was also complicated by T2DM on insulin. Betamethasone was completed prior to induction. Induction was begun with israel bulb and this was expulsed prior to arrival to L&D. She was started on pitocin and this was titrated up. She received an epidural for pain control and underwent artificial rupture of membranes. Pitocin continued to be titrated up to 20 and she continued to make change to about 7cm. During augmentation labs were obtained due to elevated BPs and liver enzymes were noted to have doubled, creatinine did elevate but not quite 2x the upper limit of normal. However given presence of elevated LFTs and BPs, she did meet criteria for pre-eclampsia w/ severe features and started on magnesium. IUPC was placed after she did not continue to progress beyond 7cm and pitocin was titrated up to 30 however contractions remained inadequate. Cervix was rechecked and she was felt to possibly progress to 8cm however pt noted that she did not desire to continue induction process as she had essentially been 7-8cm over 6 hours in the setting of previously discussed concern for narrow pubic arch. After extensive discussion, decision was made to proceed with above listed procedure. Description of Procedure The patient was taken to the operating room after consents were ensured. The patient was properly identified. Epidural anesthesia was bolused without difficulty. The patient was placed in a dorsal supine position with left lateral tilt, then prepped and draped in normal sterile fashion. Surgical time out was performed. Antibiotics were given for prophylaxis. Anesthesia was tested to ensure adequate surgical levels. Pfannenstiel skin incision was performed and carried down to the underlying fascia with a knife. The fascia was then nicked in the midline and extended laterally with pickelsyia and Alfred scissors. Superior portion of the fascia was grasped with Kochers x2 and elevated off the underlying rectus muscles using blunt and sharp dissection. Inferior portion of the fascia was then grasped with Mohini clamps x2 and also elevated off the underlying muscles with blunt dissection. Midline was identified. The peritoneum was then entered bluntly and extended to provide adequate room for delivery of baby. The hand was inserted into the abdomen, uterus was noted to be clear of adhesions. Bladder blade was inserted, bladder flap was created in the usual fashion. A low transverse uterine incision was made in the uterus and extended bluntly in a superior to inferior fashion. Clear fluid was noted at the time of entry. head was grasped and elevated through the hysterotomy in an atraumatic fashion. The baby delivered in REMY position, no nuchal cord. Remainder of the body delivered without incident. Nose and mouth were bulb suctioned on the surgical field. The cord was double clamped and cut, baby was handed off to awaiting pediatrics staff. Cord segment and blood were obtained. Placenta was then expressed from the uterus. The uterus was exteriorized. Several passes were made inside the uterus to remove the remaining membranes. Attention was then turned to the hysterotomy, which was then closed with a running locked suture of 0 Vicryl on a CTX needle. An imbricating layer was then performed using 0-Monocryl. An area of continued bleeding was noted and repaired with an interrupted stitch. There was noted to be good hemostasis. The posterior cul-de-sac was then inspected and cleaned of clot and debris. The hysterotomy was again inspected and noted to be hemostatic. The uterus was returned to the abdomen. The right and left pericolic gutters were cleaned of all clot and debris. The hysterotomy was again noted to be hemostatic. Space of Retzius was noted to be hemostatic. The fascia was then closed with a running suture of 0 Vicryl on a CT1 needle. Subcutaneous tissue was copiously irrigated and noted to be hemostatic. Subcutaneous tissue was re-approximated using 2-0 plain gut. The skin was then closed with a running suture of 3-0 Monocryl in a subcuticular fashion. At termination of the procedure, the fundal pressure was applied and a moderate amount of lochia was expressed. Pressure dressing was applied to the patient. She tolerated the procedure well. All sponge, needle, instrument counts were correct x 2. I attest to the content of the Intraoperative Record and any orders documented therein. Any exceptions are noted below. OB Procedure Charges 01695
--- NOTE | 2022-03-06 17:26 | Anesthesia Procedure Note ---
Date of Service March 06, 2022 Anesthesia Post Epidural Note Vital Signs Vital Signs: Temp Pulse Resp BP Pulse Ox 36.8 C 91 H 18 113/62 93 03/06/22 14:00 03/06/22 17:23 03/06/22 14:30 03/06/22 17:20 03/06/22 17:23 Pain Intensity Back: Pain Intensity: 0 Vaginal: Pain Intensity: 3 Notes Mental Status: alert / awake / arousable and participated in evaluation Patient Amnestic to Procedure: Yes Nausea / Vomiting: adequately controlled Pain: adequately controlled Airway Patency, RR, SpO2: stable & adequate BP & HR: stable & adequate Hydration State: stable & adequate Anesthetic Complications: no major complications apparent and Pt Satisfied with anesthetic care
[2022-03-06 17:32] LABS: Base Excess Cord Arterial Bld -5.8 mEq/L (-9-1.8); CO2 Cord Arterial Blood 78 mmHg (39.1-73.5); HCO3 Cord Arterial Blood 26 mmol/L (19.7-28.5); Oxygen Sat Cord Arterial Blood < 60.0 % (<60); PO2 Cord Arterial Blood 12 mmHg (4.1-31.7); pH Cord Arterial Blood 7.13 (7.1-7.38)
[2022-03-06 17:35] LABS: Base Excess Cord Venous Blood -5.9 mEq/L (-7.7-1.9); Cord Venous Blood HCO3 23 mmol/L (18.4-26.8); Cord Venous Blood PCO2 54 mmHg (30.4-57.2); Cord Venous Blood PO2 26 mmHg (14.1-43.3); Cord Venous Blood pH 7.23 (7.20-7.44); O2 Saturation Cord Venous Bld < 60.0 % (<68)
[2022-03-06 18:18] LABS: Hemoglobin 12.2 g/dL (12.0-16.0); Mean Corpuscular Hemoglobin 29.8 pg (25-34); Mean Corpuscular Hgb Conc 33.9 g/dL (32-36); Mean Platelet Volume 11.3 fL (7.4-10.4); Nucleated RBC # (auto) 0.44 K/uL (0-0); Nucleated RBC % (auto) 2.4 %; Platelet Count 193 K/uL (130-400); RDW Coefficient of Variation 13.5 % (11.5-14.5); Red Blood Count 4.09 M/uL (4.2-5.4); White Blood Count 18.68 K/uL (4.8-10.8)
[2022-03-06] MEDS: OXYTOCIN 20 UNITS in LACTATED RINGER'S 1,000 ML IV SCH (19:20)
[2022-03-06 19:22] LABS: Albumin Globulin Ratio 1.1 (0.9-2); Albumin Level 2.7 gm/dl (3.4-5.0); BUN Creatinine Ratio 15.2 (10-20); Bilirubin,Total 1.7 mg/dl (0.2-1.0); Calcium 8.8 mg/dl (8.5-10.1); Creatinine Clr Calc Pharmacy 55.8 ml/min; Est GFR (African American) 49.2 ml/min; Est GFR (Non-African American) 42.4 ml/min; Globulin 2.4 gm/dl (2.5-4.0); Potassium 3.6 mmol/L (3.5-5.1); Total Protein 5.1 gm/dl (6.0-8.3)
--- NOTE | 2022-03-06 19:35 | Obstetrical Progress Note ---
Date of Service March 06, 2022 Assessment & Plan (1) Delivery by section: (2) Preeclampsia: Patient not mag toxic but elevated level, so plan to decrease to 1mg/hr. Making really good urine output at present. Feeling better. Continue to monitor. Recheck mag level in 6 hours and all labs in am. Subjective Patient lying in bed. Notes she is feeling better. More alert. Has visited with the baby. Starting to have increased uop. Mag level is now 8. Physical Exam chest--ctab dtrs--+1 Results & Data ([facility]) Vital Signs (Past 12 Hours) Vital Signs Temp Pulse Resp BP Pulse Ox 03/06/22 19:28 95 H 94 03/06/22 19:23 92 H 99 03/06/22 19:18 95 H 97 03/06/22 19:13 100 H 98 03/06/22 19:08 100 H 97 03/06/22 19:04 93 H 157/80 H 03/06/22 19:03 101 H 98 03/06/22 18:58 99 H 99 03/06/22 18:53 101 H 98 03/06/22 18:48 95 H 99 03/06/22 18:43 96 H 99 03/06/22 18:38 93 H 100 03/06/22 18:34 91 H 167/86 H 03/06/22 18:33 97 H 99 03/06/22 18:28 93 H 161/89 H 99 03/06/22 18:23 96 H 99 03/06/22 18:18 97 H 153/70 H 100 03/06/22 18:13 94 H 100 03/06/22 18:09 93 H 159/86 H 03/06/22 18:08 93 H 100 03/06/22 18:03 103 H 100 03/06/22 17:58 91 H 140/65 100 03/06/22 17:53 96 H 100 03/06/22 17:48 93 H 156/72 H 99 03/06/22 17:43 95 H 98 03/06/22 17:38 98 H 135/72 96 03/06/22 17:33 92 H 93 03/06/22 17:28 99 H 118/68 92 03/06/22 17:23 91 H 93 03/06/22 17:20 87 113/62 03/06/22 17:19 97 H 73 L 03/06/22 17:17 100 H 100 03/06/22 17:12 100 H 100 03/06/22 17:07 96 H 100 03/06/22 17:02 88 98 03/06/22 16:57 96 H 100 03/06/22 16:52 102 H 140/60 100 03/06/22 15:37 124 H 99 03/06/22 15:32 111 H 98 03/06/22 15:29 110 H 145/85 H 03/06/22 15:27 110 H 100 03/06/22 15:22 117 H 100 03/06/22 15:17 111 H 98 03/06/22 15:14 109 H 153/87 H 03/06/22 15:12 109 H 99 03/06/22 15:07 122 H 98 03/06/22 15:02 113 H 98 03/06/22 15:00 111 H 140/82 03/06/22 14:57 114 H 99 03/06/22 14:52 114 H 99 03/06/22 14:47 121 H 98 03/06/22 14:45 108 H 157/90 H 03/06/22 14:42 106 H 100 03/06/22 14:37 118 H 100 03/06/22 14:32 91 H 96 03/06/22 14:30 18 03/06/22 14:29 98 H 142/80 H 03/06/22 14:27 92 H 96 03/06/22 14:22 92 H 97 03/06/22 14:17 98 H 96 03/06/22 14:14 99 H 146/83 H 03/06/22 14:12 95 H 98 03/06/22 14:07 104 H 146/84 H 100 03/06/22 14:02 107 H 99 03/06/22 14:01 111 H 167/93 H 03/06/22 14:00 36.8 C 18 03/06/22 13:57 103 H 99 03/06/22 13:52 110 H 100 03/06/22 13:47 88 95 03/06/22 13:44 98 H 132/63 03/06/22 13:42 97 H 97 03/06/22 13:37 96 H 97 03/06/22 13:32 91 H 96 03/06/22 13:30 18 03/06/22 13:29 92 H 130/61 03/06/22 13:27 87 96 03/06/22 13:22 87 97 03/06/22 13:17 98 H 97 03/06/22 13:15 88 122/60 03/06/22 13:12 96 H 98 03/06/22 13:07 103 H 99 03/06/22 13:02 107 H 100 03/06/22 13:00 18 03/06/22 12:59 110 H 137/77 03/06/22 12:57 113 H 97 03/06/22 12:52 91 H 96 03/06/22 12:47 92 H 96 03/06/22 12:44 103 H 142/79 H 03/06/22 12:42 92 H 96 03/06/22 12:37 98 H 97 03/06/22 12:32 98 H 97 03/06/22 12:30 18 03/06/22 12:29 107 H 142/82 H 03/06/22 12:27 102 H 97 03/06/22 12:22 92 H 97 03/06/22 12:17 100 H 97 03/06/22 12:14 100 H 142/80 H 03/06/22 12:12 94 H 97 03/06/22 12:07 102 H 98 03/06/22 12:02 102 H 98 03/06/22 12:00 18 03/06/22 11:57 107 H 98 03/06/22 11:52 109 H 100 03/06/22 11:47 122 H 100 03/06/22 11:45 96 H 130/68 03/06/22 11:44 36.9 C 18 03/06/22 11:42 96 H 100 03/06/22 11:37 93 H 97 03/06/22 11:32 79 96 03/06/22 11:30 18 03/06/22 11:29 84 118/58 L 03/06/22 11:27 85 96 03/06/22 11:22 84 96 03/06/22 11:17 83 97 03/06/22 11:14 100 H 134/69 03/06/22 11:12 104 H 98 03/06/22 11:07 111 H 99 03/06/22 11:02 117 H 99 03/06/22 11:00 18 03/06/22 10:59 111 H 143/85 H 03/06/22 10:57 116 H 98 03/06/22 10:52 95 H 95 03/06/22 10:47 102 H 96 03/06/22 10:45 104 H 94 03/06/22 10:44 101 H 141/82 H 03/06/22 10:42 108 H 94 03/06/22 10:37 122 H 98 03/06/22 10:32 107 H 96 03/06/22 10:30 107 H 18 135/80 03/06/22 10:27 94 H 95 03/06/22 10:22 100 H 97 03/06/22 10:17 91 H 95 03/06/22 10:14 96 H 132/77 94 03/06/22 10:12 98 H 96 03/06/22 10:07 94 H 97 03/06/22 10:02 92 H 96 03/06/22 10:00 18 03/06/22 09:59 97 H 134/81 03/06/22 09:57 90 96 03/06/22 09:52 92 H 95 03/06/22 09:50 98 H 93 03/06/22 09:47 100 H 97 03/06/22 09:45 96 H 137/83 03/06/22 09:42 36.7 C 98 H 18 95 03/06/22 09:37 99 H 97 03/06/22 09:32 108 H 99 03/06/22 09:31 104 H 92 03/06/22 09:30 18 03/06/22 09:29 112 H 131/84 03/06/22 09:27 115 H 100 03/06/22 09:22 124 H 100 03/06/22 09:17 117 H 98 03/06/22 09:14 113 H 141/85 H 03/06/22 09:12 116 H 98 03/06/22 09:07 128 H 99 03/06/22 09:02 114 H 99 03/06/22 08:59 113 H 140/81 03/06/22 08:57 108 H 99 03/06/22 08:52 101 H 98 03/06/22 08:47 101 H 98 03/06/22 08:45 99 H 141/81 H 03/06/22 08:42 113 H 99 03/06/22 08:37 89 96 03/06/22 08:32 88 96 03/06/22 08:30 90 18 137/73 03/06/22 08:27 92 H 96 03/06/22 08:22 95 H 96 03/06/22 08:17 97 H 96 03/06/22 08:14 105 H 149/88 H 03/06/22 08:12 109 H 98 03/06/22 08:07 108 H 99 03/06/22 08:02 102 H 98 03/06/22 08:00 18 03/06/22 07:59 99 H 140/78 03/06/22 07:57 101 H 97 03/06/22 07:52 103 H 97 03/06/22 07:47 103 H 97 03/06/22 07:44 101 H 118/71 03/06/22 07:42 101 H 97 03/06/22 07:37 97 H 95
[2022-03-06] MEDS: SIMETHICONE 80 MG CHEW PO SCH (21:20)
[2022-03-06] MEDS: DOCUSATE SODIUM 100 MG CAP PO SCH (21:20)
--- NOTE | 2022-03-07 06:23 | Obstetrical Progress Note ---
Date of Service March 07, 2022 Assessment & Plan (1) Encounter for care and examination after delivery: Plan: Patient is a 26-year-old now female status post LTCS at 36 and 3/7 weeks gestation postoperative day 1. Patient been receiving magnesium for preeclampsia based off of lab values. -Continue routine care, see preeclampsia treatment below -B+, antibody negative, rubella immune, GBS negative -Encourage breast-feeding -Voiding trial and ambulation encouragement after discontinuation of magnesium -Encouraged ambulation -demerol and ibuprofen as needed for pain control -Follow-up OB appointment in [address] Boston (2) Preeclampsia: Plan: - Monitor blood pressures and treat accordingly - Continue magnesium until 24 hours postdelivery - Labs still pending at the time of writing this note (3) T2DM (type 2 diabetes mellitus): Plan: - Patient has a pre-existing diagnosis of type 2 diabetes prior to . -Regimen based on provider notes prior to was metformin 1 g twice daily, glimepiride 4 mg p.o. daily, Trulicity 1.5 mg injection weekly. -Last A1c unknown -Consult medicine for regimen selection for discharge planning, appreciate recommendations. Plan: Resident Physician Supervision Note: I interviewed and examined the patient. Discussed with Dr. Allen and agree with findings and plan as documented in the note. Any exceptions or clarifications are listed here: Doing much better. Much more alert and awake. Continue mag for 24 hours. UOP improving. Her Mag level is 7.8, was 7.6 at midnight. She shows no s/s of mag toxicity so will continue Mag at 1gm/hr. Will consult medicine in the planning of her DM management and d/c. Inder treat with insulin this am. BPs are good. lfts are decreasing. Her creatinine remains stable at 1.66. Will continue to monitor closely. Documented By: Maria Esther Calderon MD, FACOG Admission and Anticipated Discharge Date Admission Date: March 05, 2022 Subjective Patient is a 26-year-old now female status post LTCS at 36 and 3/7 weeks gestation postoperative day 1. Feeling overall well without any pain but is feeling quite fatigued. Has not been ambulating and has a [place] catheter in place. Has passed gas but without bowel movement at this time. Has not been eating but has been sipping water without difficulty. Would like to breast-feed today although she has not made an attempt as of yet as she has been too tired. Reports a 1 out of 10 pain. Denies fever, chills, chest pain, shortness of antoine th, or headache. No other complaints at this time. Review of Systems Review of Systems: All systems reviewed & are unremarkable except as noted in HPI & below Physical Exam Constitutional: WD/WN, vitals as above Eyes: + anicteric sclerae Neck: trachea midline, no thyromegaly Respiratory: normal respiratory effort, lungs clear to auscultation Cardiovascular: RRR, no murmur, no edema Gastrointestinal (Abdomen): normal bowel sounds, soft, nontender, no hepatosplenomegaly Musculoskeletal: Head/Neck/Chest: normocephalic and head atraumatic Skin: no rashes, warm and dry There is a transverse incision that is bandaged at the inferior abdomen without surrounding erythema. Neurologic: deep tendon reflexes 2+ bilaterally and moves all extremities Psychiatric: A+Ox3, euthymic affect Genitourinary: Uterine fundus palpated at the level of the umbilicus, firm. Canchola catheter in place Results & Data ([facility]) Vital Signs (Past 12 Hours) Vital Signs Temp Pulse Pulse Resp BP BP Pulse Ox 03/07/22 06:18 69 93 03/07/22 06:13 68 95 03/07/22 06:08 77 93 03/07/22 06:04 72 134/77 03/07/22 06:03 71 93 03/07/22 05:58 71 93 03/07/22 05:53 75 94 03/07/22 05:48 70 88 L 03/07/22 05:46 82 89 L 03/07/22 05:43 72 92 03/07/22 05:38 71 93 03/07/22 05:34 74 144/79 H 03/07/22 05:33 72 94 03/07/22 05:30 18 97 03/07/22 05:28 79 95 03/07/22 05:23 83 98 03/07/22 05:18 75 98 03/07/22 05:13 79 98 03/07/22 05:08 70 96 03/07/22 05:04 68 120/72 03/07/22 05:03 70 94 03/07/22 04:58 70 93 03/07/22 04:53 70 93 03/07/22 04:48 69 93 03/07/22 04:43 71 93 03/07/22 04:38 71 95 03/07/22 04:34 73 124/72 03/07/22 04:33 73 94 03/07/22 04:30 36.7 C 74 18 124/72 97 03/07/22 04:28 72 94 06 04:23 72 94 03/07/22 04:18 74 94 06 04:13 73 93 03/07/22 04:08 74 94 03/07/22 04:04 75 130/71 03/07/22 04:03 74 94 03/07/22 03:58 73 94 03/07/22 03:53 74 94 03/07/22 03:48 76 94 03/07/22 03:43 77 96 03/07/22 03:38 80 94 03/07/22 03:34 82 139/78 03/07/22 03:33 76 97 03/07/22 03:30 18 98 03/07/22 03:28 80 92 03/07/22 03:23 78 94 03/07/22 03:18 80 97 03/07/22 03:13 81 96 03/07/22 03:08 77 98 03/07/22 03:04 83 140/77 03/07/22 03:03 78 97 03/07/22 02:58 82 98 03/07/22 02:53 88 96 03/07/22 02:48 82 94 03/07/22 02:43 83 96 03/07/22 02:38 83 98 06 02:34 83 138/81 03/07/22 02:33 87 97 03/07/22 02:30 18 97 03/07/22 02:28 90 97 03/07/22 02:23 79 92 03/07/22 02:18 86 95 03/07/22 02:13 83 96 06 02:08 80 93 03/07/22 02:04 85 135/77 06 02:03 80 96 06 01:58 81 94 06 01:53 81 92 03/07/22 01:48 83 93 03/07/22 01:43 82 89 L 03/07/22 01:40 80 90 03/07/22 01:38 84 93 03/07/22 01:34 85 139/77 03/07/22 01:33 82 88 L 03/07/22 01:31 80 89 L 03/07/22 01:30 16 96 03/07/22 01:28 79 91 03/07/22 01:26 84 89 L 03/07/22 01:23 81 88 L 03/07/22 01:20 78 88 L 03/07/22 01:18 82 93 03/07/22 01:15 80 90 03/07/22 01:13 84 93 03/07/22 01:08 78 93 03/07/22 01:07 82 90 03/07/22 01:04 81 141/78 H 03/07/22 01:03 84 93 03/07/22 00:58 85 94 03/07/22 00:53 96 H 97 03/07/22 00:48 103 H 94 03/07/22 00:43 89 91 03/07/22 00:39 79 89 L 03/07/22 00:38 79 92 03/07/22 00:34 81 127/66 03/07/22 00:33 80 86 L 03/07/22 00:30 18 95 03/07/22 00:28 82 91 03/07/22 00:26 83 90 03/07/22 00:23 92 H 90 03/07/22 00:20 94 H 90 03/07/22 00:18 84 85 L 03/07/22 00:13 84 86 L 03/07/22 00:08 84 86 L 03/07/22 00:04 83 120/60 03/07/22 00:03 83 85 L 03/06/22 23:58 82 86 L 03/06/22 23:53 83 87 L 03/06/22 23:48 84 88 L 03/06/22 23:43 83 89 L 03/06/22 23:42 81 89 L 03/06/22 23:38 85 87 L 03/06/22 23:34 83 137/68 03/06/22 23:33 83 86 L 03/06/22 23:30 36.8 C 89 18 141/78 H 97 03/06/22 23:28 82 94 03/06/22 23:23 92 H 97 03/06/22 23:19 84 89 L 03/06/22 23:18 80 93 03/06/22 23:13 93 H 95 03/06/22 23:08 89 95 03/06/22 23:04 94 H 141/78 H 03/06/22 23:03 95 H 93 03/06/22 22:58 99 H 96 03/06/22 22:53 89 92 03/06/22 22:51 87 90 03/06/22 22:48 87 90 03/06/22 22:44 84 89 L 03/06/22 22:43 88 91 03/06/22 22:38 85 94 03/06/22 22:37 84 89 L 03/06/22 22:34 84 143/70 H 03/06/22 22:33 85 91 03/06/22 22:31 90 87 L 03/06/22 22:30 18 99 03/06/22 22:28 93 H 93 03/06/22 22:25 89 89 L 03/06/22 22:23 92 H 95 03/06/22 22:18 98 H 97 03/06/22 22:13 95 H 97 03/06/22 22:08 96 H 95 03/06/22 22:04 91 H 141/73 H 03/06/22 22:03 89 91 03/06/22 22:01 89 90 03/06/22 21:58 100 H 97 03/06/22 21:53 98 H 95 03/06/22 21:51 86 89 L 03/06/22 21:48 97 H 96 03/06/22 21:43 84 90 03/06/22 21:41 86 90 03/06/22 21:38 86 89 L 03/06/22 21:35 85 89 L 03/06/22 21:34 82 132/67 03/06/22 21:33 84 89 L 03/06/22 21:30 84 18 96 03/06/22 21:28 88 97 03/06/22 21:23 93 H 96 03/06/22 21:18 100 H 95 03/06/22 21:13 87 92 03/06/22 21:08 101 H 96 03/06/22 21:05 102 H 154/78 H 03/06/22 21:03 103 H 93 03/06/22 21:00 18 03/06/22 20:58 102 H 95 03/06/22 20:53 108 H 95 03/06/22 20:48 100 H 96 03/06/22 20:43 93 H 95 03/06/22 20:38 100 H 96 03/06/22 20:35 96 H 159/75 H 03/06/22 20:33 95 H 96 03/06/22 20:32 18 99 03/06/22 20:28 93 H 94 03/06/22 20:27 94 H 89 L 03/06/22 20:23 92 H 95 03/06/22 20:18 94 H 95 03/06/22 20:13 102 H 97 03/06/22 20:08 99 H 96 03/06/22 20:05 94 H 156/78 H 03/06/22 20:03 96 H 96 03/06/22 19:58 96 H 95 03/06/22 19:53 89 95 03/06/22 19:48 86 92 03/06/22 19:43 94 H 94 03/06/22 19:38 103 H 97 03/06/22 19:34 95 H 156/81 H 03/06/22 19:33 97 H 99 03/06/22 19:30 36.8 C 95 H 18 156/81 H 99 03/06/22 19:28 95 H 94 03/06/22 19:23 92 H 99 03/06/22 19:18 95 H 97 03/06/22 19:13 100 H 98 03/06/22 19:08 100 H 97 03/06/22 19:04 93 H 157/80 H 03/06/22 19:03 101 H 98 03/06/22 18:58 99 H 99 03/06/22 18:53 101 H 98 03/06/22 18:48 95 H 99 03/06/22 18:43 96 H 99 03/06/22 18:38 93 H 100 03/06/22 18:34 91 H 167/86 H 03/06/22 18:33 97 H 99 03/06/22 18:28 93 H 161/89 H 99 03/06/22 18:23 96 H 99
[2022-03-07] MEDS: OXYTOCIN 20 UNITS in LACTATED RINGER'S 1,000 ML IV SCH (06:33)
[2022-03-07 07:23] LABS: Basophils # (auto) 0.02 K/uL (0-0.2); Basophils % (auto) 0.1 %; Eosinophils # (auto) 0.02 K/uL (0-0.5); Eosinophils % (auto) 0.1 %; Hematocrit (blood only) 34.8 % (37-47); Hemoglobin 12.1 g/dL (12.0-16.0); Immature Granulocytes # (auto) 0.15 K/uL (0.00-0.02); Immature Granulocytes % (auto) 0.8 %; Lymphocytes # (auto) 1.99 K/uL (1.2-3.4); Lymphocytes % (auto) 10.6 %; Mean Corpuscular Hemoglobin 30.3 pg (25-34); Mean Corpuscular Hgb Conc 34.8 g/dL (32-36); Mean Platelet Volume 11.3 fL (7.4-10.4); Monocytes # (auto) 0.62 K/uL (0.11-0.59); Monocytes % (auto) 3.3 %; Neutrophils # (auto) 15.96 K/uL (1.4-6.5); Neutrophils % (auto) 85.1 %; Nucleated RBC # (auto) 0.19 K/uL (0-0); Platelet Count 168 K/uL (130-400); RDW Coefficient of Variation 13.5 % (11.5-14.5); RDW Standard Deviation 42.4 fL (36.4-46.3); White Blood Count 18.76 K/uL (4.8-10.8)
[2022-03-07 07:55] LABS: Albumin Level 2.5 gm/dl (3.4-5.0); BUN Creatinine Ratio 13.9 (10-20); Bilirubin,Total 1.5 mg/dl (0.2-1.0); Calcium 8.2 mg/dl (8.5-10.1); Creatinine Clr Calc Pharmacy 55.4 ml/min; Est GFR (African American) 48.8 ml/min; Est GFR (Non-African American) 42.1 ml/min; Globulin 2.4 gm/dl (2.5-4.0); Magnesium Therapeutic L&D Only 7.8 mg/dL (4.0-8.0); Potassium 4.1 mmol/L (3.5-5.1); Total Protein 4.9 gm/dl (6.0-8.3)
[2022-03-07] MEDS ORDERED: INSULIN GLARGINE SOLOSTAR 100 UNITS/ML 3 ML PEN SC ONE (08:16)
[2022-03-07] MEDS ORDERED: CARBOHYDRATES FOR HYPOGLYCEMIA PO PRN (08:30)
[2022-03-07] MEDS ORDERED: GLUCOSE 10 TAB/TUBE PO PRN (08:30)
[2022-03-07] MEDS ORDERED: GLUCAGON FOR INJ 1 MG VIAL IM PRN (08:30)
[2022-03-07] MEDS ORDERED: GLUCOSE 40% GEL 15 GM TUBE PO PRN (08:30)
[2022-03-07] MEDS ORDERED: DEXTROSE 50% 50 ML SYRINGE IV PRN (08:30)
[2022-03-07] MEDS: FERROUS SULFATE 325 MG TAB PO SCH (08:47)
[2022-03-07] MEDS: PRENATAL VITAMIN 1 TAB PO SCH (08:47)
[2022-03-07] MEDS: SIMETHICONE 80 MG CHEW PO SCH ×4 (08:50→21:56)
[2022-03-07] MEDS: DOCUSATE SODIUM 100 MG CAP PO SCH ×2 (08:50→21:56)
[2022-03-07] MEDS ORDERED: diphenhydrAMINE 50 MG/ML VIAL IV PRN (09:31)
[2022-03-07] MEDS ORDERED: PROMETHAZINE HCL 25 MG in SODIUM CHLORIDE 0.9% 50 ML IV PRN (09:31)
[2022-03-07] MEDS ORDERED: oxyCODONE/ACETAMINOPHEN 5mg/325mg TAB PO PRN (09:31)
[2022-03-07] MEDS ORDERED: diphenhydrAMINE Capsule 25 MG CAP PO PRN (09:31)
[2022-03-07] MEDS ORDERED: MEPERIDINE HCL 50 MG/ML CARP IV PRN (09:31)
[2022-03-07] MEDS ORDERED: ONDANSETRON INJ 2 MG/ML 2 ML VIAL IV PRN (09:31)
[2022-03-07 12:44] LABS: Albumin Level 2.4 gm/dl (3.4-5.0); BUN Creatinine Ratio 14.8 (10-20); Bilirubin,Total 1.1 mg/dl (0.2-1.0); Calcium 8.1 mg/dl (8.5-10.1); Creatinine Clr Calc Pharmacy 56.8 ml/min; Est GFR (African American) 50.3 ml/min; Est GFR (Non-African American) 43.4 ml/min; Globulin 2.3 gm/dl (2.5-4.0); Magnesium Therapeutic L&D Only 7.6 mg/dL (4.0-8.0); Potassium 3.9 mmol/L (3.5-5.1); Total Protein 4.7 gm/dl (6.0-8.3)
[2022-03-07] MEDS ORDERED: PHARMACY GLYCEMIC MGMT CONSULT PRN (15:44)
[2022-03-07] MEDS: INSULIN ASPART PER UNIT SC SCH ×2 (19:03→21:55)
[2022-03-07] MEDS ORDERED: bisacodyL 5 MG TABEC PO SCH (20:00)
[2022-03-08] MEDS: IBUPROFEN 600 MG TAB PO PRN ×4 (00:10→19:38)
[2022-03-08 06:11] LABS: Hematocrit (blood only) 34.7 % (37-47); Hemoglobin 11.8 g/dL (12.0-16.0); Mean Corpuscular Hemoglobin 30.6 pg (25-34); Mean Corpuscular Volume 90.1 fL (80-100); Nucleated RBC # (auto) 0.07 K/uL (0-0); Nucleated RBC % (auto) 0.5 %; Platelet Count 238 K/uL (130-400); RDW Coefficient of Variation 13.9 % (11.5-14.5); RDW Standard Deviation 45.2 fL (36.4-46.3); Red Blood Count 3.85 M/uL (4.2-5.4); White Blood Count 15.57 K/uL (4.8-10.8)
[2022-03-08 06:55] LABS: Albumin Level 2.6 gm/dl (3.4-5.0); BUN Creatinine Ratio 17.4 (10-20); Bilirubin,Total 0.7 mg/dl (0.2-1.0); Calcium 8.1 mg/dl (8.5-10.1); Est GFR (African American) 43.1 ml/min; Est GFR (Non-African American) 37.2 ml/min; Globulin 2.6 gm/dl (2.5-4.0); Potassium 4.3 mmol/L (3.5-5.1); Total Protein 5.2 gm/dl (6.0-8.3)
--- NOTE | 2022-03-08 07:17 | Obstetrical Progress Note ---
Date of Service March 08, 2022 Assessment & Plan (1) Encounter for care and examination after delivery: 26 yo POD 2 from pLTCS complicated by cholestasis and pre- eclampsia w/ SF, DM, doing well -Meeting all pp milestones, continue routine pp care. Feels less stressed by fo rmula feeding -PET w/ SF - LFTs normal, Cr slightly higher today but no longer has IVF so will plan to have her increase fluids today and repeat later to make sure nothing else going on -T2DM - medicine was not aware of consult until later in afternoon yesterday so used the pharmacy glycemic consult last evening. Pt would like to go back on metformin, trulicity and glyburide so they are aware of pt's desire to do so and consult today -O+/rubella immune/ -f/u 6 weeks for appt Subjective Ambulation: ambulating normally Voiding: no voiding problems Passing Gas:: Yes Diet Tolerance:: regular diet Lochia:: Small Feeding Type:: bottle feeding Pain well managed with medication Review of Systems Denies fevers, chills, n/v, AQUINO, CP, SOB Physical Exam Constitutional WD/WN, vitals as above no acute distress Respiratory normal respiratory effort, lungs clear to auscultation Cardiovascular RRR, no murmur, no edema Gastrointestinal (Abdomen) Inspection/Auscultation: + abdominal surgical scar (c/d/i) Percussion/Palpation: abdomen soft; abdomen nontender fundus firm at umbilicus and NT Musculoskeletal BLE symmetric, nonerythematous, nontender Results & Data ([facility]) Vital Signs (Past 12 Hours) Vital Signs Temp Pulse Resp BP Pulse Ox 03/07/22 23:55 98.6 F 99 H 16 123/74 97
--- NOTE | 2022-03-08 07:56 | Hospitalist Consultation ---
Date of Consultation March 08, 2022 Assessment & Plan (1) T2DM (type 2 diabetes mellitus): Nancy Tabares is a 26-year-old female with a past medical history of pre-existing type 2 diabetes mellitus, obesity who is status post section 03/06/22 for the of a single male child at 36+3 with induction of labor due to cholestasis of & preeclampsia. We have been consulted for glycemic management. Type 2 diabetes mellitus Patient has decided to formula feed rather than breast-feed at discharge. Initially was considering Patient's prior to conception regimen was metformin 1 g twice daily, Trulicity 1.5 mg weekly, and glimepiride 4 mg p.o. nightly At discharge May resume metformin 500 mg in the morning, increase by 500 mg weekly to a goal of 1 g a.m./p.m. At discharge may resume Trulicity 75 mg weekly, increase to 1.5 mg after 4 weeks At followup ~1week if BSG control not adequate consider addition of glimepiride 1 mg with first morning meal, may increase by 1 milligram weekly up to 4 mg daily as needed if tolerating well. There was a report of pt being on glyburide but did not see any other evidence of this, was on glimeperide per DM office note review and pt discussion. Patient did have a history of going low wh ile taking evening glyburide, would recommend with breakfast or lunch to start with f/u for outpatient adjustments. This has a high risk of hypoglycemia, and should be held first should this occur. was on Levemir 14 nightly, Apidra 5 to 10 units with meals. Per patient she has been increased to Levemir 26 and Apidra 20 units with meal during the course of her . Rapidly decreasing insulin resistance following delivery. May discontinue insulin and pursue regimen above as patient intends to formula feed. Should she choose to breast-feed, would instead pursue metformin with dosing as noted above and Lantus 10 units daily with additional titration at outpatient follow-up based on BSG checks. Patient has had good A1c control during May continue glargine every morning and SSI daily per pharmacy recommendations until discharge - BSG AC/HS - Recommend DM followup with endo within 1 month, order placed Preeclampsia, cholestasis of . ?JOAO/ATN LFTs were elevated and subsequently normalized after delivery as noted above. No evidence of hemolysis or thrombocytopenia (PLT 238) patient does have elevation in creatinine Management by primary team Patient has had normalization of LFTs, alk phos remains equivocal Creatinine uptrending, LR 125 continued.Afternoon cr pending. UA with microscopy ordered for ?Cast/ATN. FeNA labs ordered for AM, continue to trend. Pt reports good UOP. No potassium derangement. Status post delivery of male infant by c/s care per primary team (2) Preeclampsia: (3) Cholestasis during , antepartum: History of Present Illness Reason for Consultation: DM management Attending Physician: Pauly Doyle, History of Present Illness Nancy Tabares is a 26-year-old female with a past medical history of type 2 diabetes mellitus who presented for section due to preeclampsia and is now status post after the of a single male child at 36+3. We have been consulted for discharge DM management. Initial labs: Leukocytosis peaked at 18, hemoglobin 12.7, stable 1 point Bilirubin 1.1, AST 44, ALT 64, alk phos 154 Creatinine 1.62 UA: Positive leukocyte esterase, WBC, RBC, epithelial cells, no bacteria. Urine protein trace. Proteinuria 24-hour total 162 on 01/18/2022 GBS negative Subsequent labs: Downtrending . Bilirubin normalized, AST/ALT normalized, alkaline phosphatase equivalent. Creatinine up trended to 1.84. Continued on magnesium and oral hydration. Urine microscopy ordered for cast evaluation, at risk for ATN At bedside exam patient reports that she feels like she is doing well, much better than yesterday. She reports she has having some discomfort at her C- section site, but that this is minimal. Her cramping is improving. Denies any nausea/vomiting, chest pain, chest pressure, shortness of breath, difficulty breathing, lightheadedness, dizziness, presyncope, headache, dysuria, weakness, vision change. She reports that she had been thinking about whether to breast- feed or formula feed, has decided to formula feed at this time. Does not intend to breast-feed, she reports that she feels guilty about this decision because many people have been telling her she should but does not feel this is right for her. Reassurance provided. Patient's prior to conception regimen was metformin 1 g twice daily, Trulicity 1.5 mg weekly, and glimepiride 4 mg p.o. nightly. One note indication pt being on glyburide but did not see any evidence of this, was on glimeperide per endo review and pt discussion. Patient did have a history of going low while taking evening glyburide, would recommend with breakfast or lunch to start with f/u for outpatient adjustments. This should be held first for any hypoglycemia. Medical History: Reviewed Medications: Reviewed Surgical History: Reviewed Allergies: Reviewed Social History: No tobacco/etoh use. Code Status: Full Allergies Allergy/AdvReac Type Severity Reaction Status Date / Time No Known Drug Allergies Allergy Unknown Verified 03/05/22 08:01 Home Medications Medication Instructions Recorded Confirmed Type prenat.vits,elke,uhq-hont-lwtzv 1 ea PO DAILY 01/27/21 03/04/22 History pen needle, diabetic 32 gauge x #120 ea 10/31/21 03/04/22 Rx 5/32" (BD Ultra-Fine [place]iah Pen Needle) acetone (urine) test (Ketone Urine #50 ea 11/14/21 03/04/22 Rx Test) lancets (Accu-Chek Softclix #150 ea 01/07/22 03/04/22 Rx Lancets) blood sugar diagnostic (Accu-Chek #150 ea 01/08/22 03/04/22 Rx Kimberly Plus test strp) blood-glucose meter (Accu-Chek #1 ea 01/08/22 03/04/22 Rx Kimberly Plus Meter) aspirin 81 mg tablet,delayed 81 mg PO DAILY 01/26/22 03/05/22 History release (Adult Low Dose Aspirin) insulin detemir U-100 100 unit/mL 26 unit SUBCUT HS ml 02/23/22 03/05/22 History (3 mL) subcutaneous pen (Levemir FlexTouch U-100 Insulin) insulin glulisine U-100 100 20 unit SUBCUT DAILY ml 02/23/22 03/05/22 History unit/mL subcutaneous pen (Apidra SoloStar U-100 Insulin) Patient History Medical History Obesity T2DM (type 2 diabetes mellitus) Surgical History No history of previous surgery Family History Mother Hepatitis Grandfather (Paternal) Colorectal cancer Uncle Colorectal cancer Denies family history of Ovarian cancer Breast cancer Uterine cancer Social History Smoking Status: Never smoker Hx Alcohol Use: No Hx Substance Use: No Preferred Language: Congolese Communication Ability: Effective 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 Feels Safe at Home: Yes Safety Concerns: Feels Safe At This Time Review of Systems Review of Systems: All systems reviewed & are unremarkable except as noted in Subjective Physical Exam Physical Exam: General: A&Ox3. NAD. Cooperative. With at tiem of visit HEENT: Atraumatic, normocephalic. Vision and hearing grossly intact. Pupils equal and reactive to light. EOM intact, no nystagmus on exam. Pulm: CTAB A&P. -wheezes, -rales, -rhonchi. Symmetrical chest rise. No increase in work of breathing. No respiratory distress. Cardiac: RRR, -mrg. Radial pulses intact and symmetrical. Abdominal: Nontender, nondistended, soft. BS present. Low midline section incision is intact, dressing previously removed. Incision line is clean, dry, intact and without erythema or discharge. Extremities: Warm and dry. Sensation to soft touch is intact in hands and feet without asymmetry. Telegraph Messenger strength and ankle dorsiflexion/plantarflexion is intact with 5/5 strength. Pretibial edema is present bilaterally, improving per patient. No calf tenderness or significant asymmetry is appreciated on exam. Results & Data Results & Data ([facility]) Vital Signs (Past 12 Hours) Vital Signs Temp Pulse Resp BP Pulse Ox 03/07/22 23:55 37 C 99 H 16 123/74 97 PG Care Time/CCT Total # of Minutes Spent Total Time Spent with Patient: Total time spent is greater than 50% in coordination of care (as documented) at patient's floor/unit and/or counseling patient: Coding Level of Care Code 77965 Inpt Consult Level 4 Diagnoses Preeclampsia O14.90 Cholestasis during , antepartum O26.619; K83.1 T2DM (type 2 diabetes mellitus) E11.9
[2022-03-08] MEDS: PRENATAL VITAMIN 1 TAB PO SCH (09:31)
[2022-03-08] MEDS: SIMETHICONE 80 MG CHEW PO SCH ×4 (09:31→21:58)
[2022-03-08] MEDS: FERROUS SULFATE 325 MG TAB PO SCH (09:31)
[2022-03-08] MEDS: INSULIN ASPART PER UNIT SC SCH ×4 (09:31→21:56)
[2022-03-08] MEDS: DOCUSATE SODIUM 100 MG CAP PO SCH ×2 (09:31→21:56)
[2022-03-08] MEDS: INSULIN GLARGINE SOLOSTAR 100 UNITS/ML 3 ML PEN SC SCH (09:32)
[2022-03-08 13:55] LABS: Appearance Urine Clear (Clear); Bacteria Urine Automated Negative (Negative); Bilirubin Urine Negative (Negative); Blood Urine 3+ (Negative); Color Urine Yellow; Glucose Urine UA Negative (Negative); Ketones Urine Negative (Negative); Leukocyte Esterase Urine Trace (Negative); Nitrite Urine Negative (Negative); Protein Urine Trace (Negative); RBC Urine Automated >30 /hpf (0-4); Specific Gravity Urine 1.005 (1.000-1.030); Urobilinogen Urine Negative (Negative)
--- NOTE | 2022-03-08 15:18 | Pharmacy Report ---
Pharmacy Glycemic Short Note 2 - Date of Service March 08, 2022 - Glycemic Short BSG Results (Last 24 hours): 03/07/22 03/07/22 03/08/22 17:49 21:47 05:50 Glucose 107 H POC Glucose 148 H 174 H 03/08/22 03/08/22 07:50 12:42 Glucose POC Glucose 124 H 115 H OUTPATIENT ANTIDIABETIC REGIMEN: * Levemir 26 units Sq HS + Apidra * A1c = 7.1% (02/23/22) ASSESSMENT: * Nancy is a type 2 diabetic patient who is status post section on 03/06/22. * Insulin doses have been significantly reduced since stress of has resolved. * Fasting BSG of 124 mg/dL this morning. Trended down to 115 mg/dL at lunch. I will reduce Lantus further and will loosen carb coverage. * Discussed case with Hospitalist. Will continue insulin while admitted. Patient plans to transition to metformin + Trulicity on discharge (she was on this regimen plus glimepiride pre ). She plans to formula feed . PLAN FOR INPATIENT GLYCEMIC CONTROL: * Basal insulin * Lantus 10 units SQ AM * Bolus insulin * NovoLog per scale ACHS or Q6hrs while NPO * Goal Range: Low 110 mg/dL - High 140 mg/dL * Correction Factor: 25 mg/dL/unit * Nutritional / Prandial insulin per carb ratio of 1 unit per 9 grams CHO consumed
[2022-03-08 16:02] LABS: Est GFR (African American) 43.1 ml/min; Est GFR (Non-African American) 37.2 ml/min
[2022-03-08] MEDS ORDERED: bisacodyL 10 MG SUPP PR PRN (16:30)
[2022-03-09 06:29] LABS: Albumin Level 2.4 gm/dl (3.4-5.0); BUN Creatinine Ratio 20.5 (10-20); Bilirubin,Total 0.5 mg/dl (0.2-1.0); Calcium 8.3 mg/dl (8.5-10.1); Est GFR (Non-African American) 49.2 ml/min; Globulin 2.5 gm/dl (2.5-4.0); Potassium 3.9 mmol/L (3.5-5.1); Total Protein 4.9 gm/dl (6.0-8.3)
[2022-03-09] MEDS: SIMETHICONE 80 MG CHEW PO SCH ×5 (07:05→21:07)
[2022-03-09] MEDS: DOCUSATE SODIUM 100 MG CAP PO SCH ×2 (07:16→21:06)
[2022-03-09] MEDS: FERROUS SULFATE 325 MG TAB PO SCH (07:17)
[2022-03-09] MEDS: IBUPROFEN 600 MG TAB PO PRN ×3 (07:17→21:06)
[2022-03-09] MEDS: PRENATAL VITAMIN 1 TAB PO SCH (07:17)
--- NOTE | 2022-03-09 07:31 | Obstetrical Progress Note ---
Date of Service March 09, 2022 Assessment & Plan (1) Encounter for care and examination after delivery: Plan: Patient is a 26-year-old now female status post LTCS at 36 and 3/7 weeks gestation postoperative day 1. Patient been receiving magnesium for preeclampsia based off of lab values. -Continue routine care, see preeclampsia treatment below -B+, antibody negative, rubella immune, GBS negative -Encourage breast-feeding -Encouraged ambulation -Demerol and ibuprofen as needed for pain control -Follow-up OB appointment in [address] Boston (2) Preeclampsia: Plan: -Monitor blood pressures and treat accordingly -Labs continue to improve and creatinine has improved from 1.86-1.46 this morning. (3) T2DM (type 2 diabetes mellitus): Plan: -Patient has a pre-existing diagnosis of type 2 diabetes prior to . -Sugars have been well controlled while on insulin in the hospital. -Hospitalist recommended continuing metformin and Trulicity at time of discharge. Follow-up with samples and repairs preparer postdischarge. Admission and Anticipated Discharge Date Admission Date: March 05, 2022 Supervising Physician Co-Signing Physician Notes Resident Physician Supervision Note: I was present with Dr. Allen during the history and exam. I discussed the case with the resident and agree with the findings and plan as documented in the note. Any exceptions or clarifications are listed here: POD3 s/p pLTCS for arrest of dilation during IOL for cholestasis also c/b PET w/ SF and T2DM. Doing well off mag, BPs normal. LFTs normalized, Cr improving today. ATN labs ordered by medicine pending this AM. BG managed w/ insulin while in hospital, metformin and trulicity ordered to resume on discharge by medicine - appreciate recs. Baby getting antibiotics x 48hrs now and started yesterday so will stay today, meeting all pp milestones. VSS, incision c/d/i. Continue routine care. Documented By: Latoya Boston MD Subjective Patient is a 26-year-old now female status post LTCS at 36 and 3/7 weeks gestation postoperative day 3. Feeling overall well without any pain but is feeling quite fatigued. Has been ambulating around the room and urinating without difficulty. Has passed gas but without bowel movement at this time. Eating and drinking without nausea or vomiting. Breast-feeding without difficulty Reports a 3 out of 10 pain controlled with pain medication Denies fever, chills, chest pain, shortness of breath, or headache. No other complaints at this time. Review of Systems Review of Systems: All systems reviewed & are unremarkable except as noted in HPI & below Physical Exam Constitutional: WD/WN, vitals as above Eyes: + anicteric sclerae Neck: trachea midline, no thyromegaly Respiratory: normal respiratory effort, lungs clear to auscultation Cardiovascular: RRR, no murmur, no edema Gastrointestinal (Abdomen): normal bowel sounds, soft, nontender, no hepatosplenomegaly Musculoskeletal: Head/Neck/Chest: normocephalic and head atraumatic Skin: no rashes, warm and dry Neurologic: deep tendon reflexes 2+ bilaterally and moves all extremities Psychiatric: A+Ox3, euthymic affect Genitourinary: Uterus fundus palpated 2 cm below the umbilicus, firm. Results & Data ([facility]) Vital Signs (Past 12 Hours) Vital Signs Temp Pulse Pulse Resp BP Pulse Ox 03/09/22 07:12 36.5 C 76 15 131/80 98 03/08/22 23:55 36.6 C 80 18 132/73 99
[2022-03-09 08:06] LABS: Creatinine Urine Random 33.4 mg/dl
[2022-03-09] MEDS: INSULIN ASPART PER UNIT SC SCH ×4 (09:59→21:49)
[2022-03-09] MEDS: INSULIN GLARGINE SOLOSTAR 100 UNITS/ML 3 ML PEN SC SCH (09:59)
--- NOTE | 2022-03-09 17:38 | Hospitalist Progress Note ---
Date of Service March 09, 2022 Assessment & Plan (1) T2DM (type 2 diabetes mellitus): Plan: Nancy Tabares is a 26-year-old female with a past medical history of pre-existing type 2 diabetes mellitus, obesity who is status post section 03/06/22 for the of a single male child at 36+3 with induction of labor due to cholestasis of & preeclampsia. We have been consulted for glycemic management. Type 2 diabetes mellitus Patient has decided to formula feed rather than breast-feed at discharge. Initially was considering Patient's prior to conception regimen was metformin 1 g twice daily, Trulicity 1.5 mg weekly, and glimepiride 4 mg p.o. nightly At discharge May resume metformin 500 mg in the morning, increase by 500 mg weekly to a goal of 1 g a.m./p.m. At discharge may resume Trulicity 75 mg weekly, increase to 1.5 mg after 4 weeks At followup ~1week if BSG control not adequate consider addition of glimepiride 1 mg with first morning meal, may increase by 1 milligram weekly up to 4 mg daily as needed if tolerating well. There was a report of pt being on glyburide but did not see any other evidence of this, was on glimeperide per DM office note review and pt discussion. Patient did have a history of going low while taking evening glyburide, would recommend with breakfast or lunch to start with f/u for outpatient adjustments. This has a high risk of hypoglycemia, and should be held first should this occur. was on Levemir 14 nightly, Apidra 5 to 10 units with meals. Per patient she has been increased to Levemir 26 and Apidra 20 units with meal during the course of her . Rapidly decreasing insulin resistance following delivery. May discontinue insulin and pursue regimen above as patient intends to formula feed. Should she choose to breast-feed, would instead pursue metformin with dosing as noted above and Lantus 10 units daily with additional titration at outpatient follow-up based on BSG checks. Patient has had good A1c control during May continue glargine every morning and SSI daily until discharge - BSG AC/HS - Recommend DM followup with endo within 1 month Preeclampsia, cholestasis of . ?JOAO/ATN LFTs were elevated and subsequently normalized after delivery as noted above. No evidence of hemolysis or thrombocytopenia (PLT 238) patient does have elevation in creatinine Management by primary team Patient has had normalization of LFTs, alk phos remains equivocal Creatinine downtrending from 1.84-1.46, significant improvement today Transaminases and bilirubin resolvedno sodium, potassium derangements FeNa 2.7%, ?Underlying ATN, peaked and improving Oral intake okay, continued on LR. May decrease/DC fluids and continue to trend renal labs. Does not appear volume contracted at time of assessment Status post delivery of male by c/s care per primary team Doing well, recommend morning CMP. We will follow for labs in the morning, and if doing well and continues to improve sign off. Please reach out if additional questions or if clinical condition changes (2) Preeclampsia: (3) Cholestasis during , antepartum: Admission and Anticipated Discharge Date Admission Date: March 05, 2022 Subjective Patient doing well this morning. She is in the nursery, reports no new complaints. Peeing normally. Formula feeding, feeling well. No acute concerns. Review of Systems Review of Systems: All systems reviewed & are unremarkable except as noted in Subjective Physical Exam Physical Exam: General: A&Ox3. NAD. Cooperative. HEENT: Atraumatic, normocephalic. Pulm: Symmetrical chest rise. No increase in work of breathing. No respiratory distress. Cardiac: RRR -MRG Abdominal: Nontender, nondistended, soft. BS present. Results & Data Results & Data ([facility]) Vital Signs (Past 12 Hours) Vital Signs Temp Pulse Resp BP Pulse Ox 03/09/22 15:56 36.5 C 79 18 138/77 97 03/09/22 07:12 36.5 C 76 15 131/80 98 PG Care Time/CCT Total # of Minutes Spent Total Time Spent with Patient: Total time spent is greater than 50% in coordination of care (as documented) at patient's floor/unit and/or counseling patient: Coding Level of Care Code 27520 Subseq Hosp Care Lvl 2 Diagnoses T2DM (type 2 diabetes mellitus) E11.9 Preeclampsia O14.90 Cholestasis during , antepartum O26.619; K83.1
[2022-03-10] MEDS: IBUPROFEN 600 MG TAB PO PRN ×2 (01:38→08:02)
--- NOTE | 2022-03-10 05:24 | Obstetrical Progress Note ---
Date of Service March 10, 2022 Assessment & Plan (1) Encounter for care and examination after delivery: Plan: Patient is a 26-year-old now female status post LTCS at 36 and 3/7 weeks gestation postoperative day 4. -Continue routine care, discharge today after being seen by hospitalist, discharge instructions reviewed with patient -B+, antibody negative, rubella immune, GBS negative -Hemoglobin 11.8 on 03/08 -Encourage formula feeding, discussed if patient would decide to breast-feed she would have to discontinue her Trulicity and switch to Lantus. Metformin could stay on. See hospitalist note for further details -Encouraged ambulation -Pain controlled with ibuprofen -Blood pressure check in 1 week in office -Follow-up OB appointment in [address] Boston (2) Preeclampsia: Plan: -Monitor blood pressures and treat accordingly -Creatinine continues to improve going from 1.46-1.22 -All other labs have continued to downtrend/normalize (3) T2DM (type 2 diabetes mellitus): Plan: -Patient has a pre-existing diagnosis of type 2 diabetes prior to . -Sugars have been well controlled while on insulin in the hospital. -Hospitalist recommended continuing metformin and Trulicity at time of discharge if patient continues formula feeding Follow-up with patient support partner post- discharge. Admission and Anticipated Discharge Date Admission Date: March 05, 2022 Supervising Physician Co-Signing Physician Notes I was present with Dr. Allen during the history and exam. I discussed the case with the resident and agree with the findings and plan as documented in the note. Any exceptions or clarifications are listed here: POD4 s/p pLTCS for arrest of dilation during IOL for cholestasis also c/b PET w/ SF and T2DM. Doing well off mag, BPs normal. LFTs normalized, Cr improving, one more check this morning to ensure still trending towards normal, showing good results at 1.22. BG managed w/ insulin while in hospital, metformin and trulicity ordered to resume on discharge by medicine - appreciate recs. Baby s/p antibiotics x 48hrs now and anticipate discharge of mom and infant both today. Subjective Patient is a 26-year-old now female status post LTCS at 36 and 3/7 weeks gestation postoperative day 4. Feeling overall well. Has been ambulating around the room and urinating without difficulty. Has passed gas but without bowel movement at this time. Eating and drinking without nausea or vomiting. Feeding baby with formula. Reports a 3 out of 10 pain controlled with pain medication. Denies fever, chills, chest pain, shortness of breath, or headache. No other complaints at this time. Review of Systems Review of Systems: All systems reviewed & are unremarkable except as noted in HPI & below Physical Exam Constitutional: WD/WN, vitals as above Eyes: + anicteric sclerae Neck: trachea midline, no thyromegaly Respiratory: normal respiratory effort, lungs clear to auscultation Cardiovascular: RRR, no murmur, no edema Gastrointestinal (Abdomen): normal bowel sounds, soft, nontender, no hepatosplenomegaly Musculoskeletal: Head/Neck/Chest: normocephalic and head atraumatic Skin: no rashes, warm and dry There is a surgical incision at the inferior abdomen that is without surrounding erythema or discharge. Neurologic: deep tendon reflexes 2+ bilaterally and moves all extremities Psychiatric: A+Ox3, euthymic affect Genitourinary: Uterine fundus palpated 2 cm below the umbilicus, firm Results & Data ([facility]) Vital Signs (Past 12 Hours) Vital Signs Temp Pulse Pulse Resp BP BP 03/10/22 04:00 36.8 C 65 16 116/74 03/10/22 00:00 36.7 C 67 16 120/71 03/09/22 20:00 36.8 C 90 16 134/78
[2022-03-10 07:07] LABS: Calcium 9.3 mg/dl (8.5-10.1); Creatinine Clr Calc Pharmacy 75.4 ml/min; Est GFR (African American) 70.8 ml/min; Est GFR (Non-African American) 61.1 ml/min; Potassium 4.1 mmol/L (3.5-5.1)
[2022-03-10] MEDS: SIMETHICONE 80 MG CHEW PO SCH (08:01)
[2022-03-10] MEDS: DOCUSATE SODIUM 100 MG CAP PO SCH (08:01)
[2022-03-10] MEDS: FERROUS SULFATE 325 MG TAB PO SCH (08:01)
[2022-03-10] MEDS: PRENATAL VITAMIN 1 TAB PO SCH (08:02)
[2022-03-10] MEDS: INSULIN ASPART PER UNIT SC SCH (09:09)
[2022-03-10] MEDS ORDERED: INSULIN GLARGINE SOLOSTAR 100 UNITS/ML 3 ML PEN SC SCH (12:00)
--- NOTE | 2022-03-12 10:29 | Discharge Summary ---
Date of Service March 12, 2022 Admission HPI Per Admitting Provider 26yo @ 36 2/7 here for IOL. She has symptomatic cholestasis of with elevated bile acids, has been recommended for delivery between 36 and 37w. Additionally, she is DM type 2, on insulin during the . Rec'd 2 doses of celestone, 24h apart. GBS neg. Polyhydramnios, 9cm on 03/02 US. Cephalic. [place] bulb last night, fell out prior to her leaving L&D. Admission Exam (Per Admitting) Constitutional Physical Exam: FHT Cat 1 [place] none SVE unable to fully get to cervix d/t patient discomfort with exam. Cervix is presumably 4cm d/t israel balloon falling out last night. 4/50/- 3/mod/mid, EFW 6-7 Limited bedside US: cephalic, +movement, +cardiac activity, large amount of fluid Constitutional: WD/WN, vitals as above Respiratory: normal respiratory effort, lungs clear to auscultation no respiratory distress Cardiovascular: Rate/Rhythm: regular rate and regular rhythm Gastrointestinal (Abdomen): Inspection/Auscultation: abdomen normal to inspection Percussion/Palpation: abdomen soft; abdomen nontender Gravid. No s/s chorio or abruption. Skin: no rashes, warm and dry Psychiatric: A+Ox3, euthymic affect Discharge Data Consultations 03/05/22 09:04 Consult Anesthesiology Stat 03/07/22 08:14 Consult Hospitalist Routine Procedures Performed Operation Date: 03/06/22 15:20 Actual Procedures p Section in LD with the of a live male child at 1605. (Bilateral) - Latoya Boston MD Hospital Course (1) Delivery by section: (2) Cholestasis during , antepartum: (3) Preeclampsia: (4) T2DM (type 2 diabetes mellitus): 26 y/o at 36 3/7 wga presents for IOL due to cholestasis of . was also complicated by T2DM on insulin. Betamethasone was completed prior to induction. Induction was begun with israel bulb and this was expulsed prior to arrival to L&D. She was started on pitocin and this was titrated up. She received an epidural for pain control and underwent artificial rupture of membranes. Pitocin continued to be titrated up to 20 and she robyn nued to make change to about 7cm. During augmentation labs were obtained due to elevated BPs and liver enzymes were noted to have doubled, creatinine did elevate but not quite 2x the upper limit of normal. However given presence of elevated LFTs and BPs, she did meet criteria for pre-eclampsia w/ severe features and started on magnesium. IUPC was placed after she did not continue to progress beyond 7cm and pitocin was titrated up to 30 however contractions remained inadequate. Cervix was rechecked and she was felt to possibly progress to 8cm however pt noted that she did not desire to continue induction process as she had essentially been 7-8cm over 6 hours in the setting of previously discussed concern for narrow pubic arch. After extensive discussion, decision was made to proceed with above listed procedure due to arrest of dilation and amternal exhaustion.See operative report for details. Postoperatively, the pt remained on magnesium for 24 hours for PET w/ SF. LFTs normalized, Cr did increase slightly but then did downtrend. Medicine was consulted to aid in discharge management of home DM meds, appreciated their assistance, after being managed on insulin while still admitted. She continued to do well postoperatively and was discharged home on POD4 due to baby requiring antibiotics for 48hrs. Coding Level of Care Code None Diagnoses Delivery by section Cholestasis during , antepartum O26.619; K83.1 Preeclampsia O14.90 T2DM (type 2 diabetes mellitus) E11.9
== END 2022-03-10 11:45 | disposition home or self-care (01) | DRG 786 ==
LOC: 4S1 07:43 → 4E2 03-07 17:00

== ENCOUNTER 2023-11-22 15:16 | Inpatient (IN) ==
--- NOTE | 2023-11-22 16:14 | History & Physical Report ---
Date of Service November 22, 2023 Assessment & Plan (1) Type 1 diabetes mellitus affecting , antepartum: (2) Previous delivery affecting , antepartum: (3) Polyhydramnios: (4) Cholestasis: (5) SROM (spontaneous rupture of membranes): Plan 28 yo presented for decreased FM and now SROM at 35 4/7 wga VSS Fetus cat 1 PPROM - discussed w/ GA, would rec delivery. Pt is a type 1 vs type 2 DM per endocrine and plan for delivery by repeat CS, discussed risks and benefits of steroids in the setting and limited benefit for baby given time so will defer. Discussed indications, risks, benefits, alternatives with risks including infection, bleeding, injury to adjacent structures (bowel, bladder, ureters, blood vessels, nerves, baby), possible need for blood transfusion and/or life saving hysterectomy, VTE. Consent reviewed in detail w/ pt and signed after all questions answered to her satisfaction. Had previously signed MA31 but isn't 100% sure about it so will defer given risk of regret. Plan for ancef and azithro. Anesthesia and peds made aware. History of Present Illness Chief Complaint: decreased FM Primary Care Provider: Rose Stoner, DO 28 yo at 35 4/7 wga presented for prolonged monitoring due to decreased FM and inability to monitor. While US was being performed to try to find where to put NST, gross srom was noted. PNI: CSx1 Polyhydramnios Cholestasis Resolved low lying plac Past TRANSPORTATION AID Hx: G1 2020 G2 2021 pCS G3 current denies hx stis Allergies Allergy/AdvReac Type Severity Reaction Status Date / Time No Known Drug Allergies Allergy Unknown Verified 11/22/23 10:12 Home Medications Medication Instructions Recorded Confirmed Type acetone (urine) test (Ketone Urine #50 ea 11/14/21 11/19/23 Rx Test strips) lancets (Accu-Chek Softclix #150 ea 01/07/22 11/19/23 Rx Lancets) blood sugar diagnostic (Accu-Chek #150 ea 01/08/22 11/19/23 Rx Kimberly Plus test strips) blood-glucose meter (Accu-Chek #1 ea 01/08/22 11/19/23 Rx Kimberly Plus Meter) pen needle, diabetic 32 gauge x #120 ea 04/01/22 11/19/23 Rx 5/32" (BD Ultra-Fine Moriah Pen Needle) acetone (urine) test (Ketone Urine #50 ea 06/28/23 11/19/23 Rx Test strips) blood sugar diagnostic (OneTouch #150 ea 06/28/23 11/19/23 Rx Verio test strips) lancets 33 gauge #150 ea 06/28/23 11/19/23 Rx insulin glargine 100 unit/mL (3 10 unit (0.1 mL) subcut QPM #15 mL 07/08/23 11/22/23 Rx mL) subcutaneous pen (Lantus Solostar U-100 Insulin) pen needle, diabetic 32 gauge x #150 ea 07/08/23 11/19/23 Rx 532" (BD Ultra-Fine Moriah Pen Needle) insulin lispro 100 unit/mL 20 unit subcut TID 08/18/23 11/22/23 History subcutaneous pen (Humalog KwikPen (U-100) Insulin) ursodiol 300 mg capsule 300 mg PO BID #60 caps 11/19/23 11/22/23 Rx ferrous sulfate 325 mg (65 mg 325 mg PO QAM 11/22/23 11/22/23 History iron) tablet (Iron (ferrous sulfate)) [id number] 1 mg 1 tab PO QAM 11/22/23 11/22/23 History tablet Patient History Medical History Anemia Cholestasis during , antepartum History of COVID-19 (2021) "resolved" T2DM (type 2 diabetes mellitus) Takes insulin during Surgical History Delivery by section (03/06/22) Primary : Dosed [place]ural[place] (failure to [place]) Family History Mother Hepatitis Grandfather (Paternal) Colorectal cancer Uncle Colorectal cancer Denies family history of Ovarian cancer Breast cancer Uterine cancer Social History (Updated 11/22/23 @ 15:33 by Jaquelin Sahni RN) Smoking Status: Never smoker Second Hand Exposure: No; Do You Dip or Chew Tobacco: No; Hx Alcohol Use: No Hx Substance Use: No Preferred Language: Filipino Communication Ability: Effective Outside Residential Sales Professional Required: No Beliefs That Will Affect Care: None marital status: Single marital status details: kelley Starr (35) [phone] Current Living Situation: Spouse Current Living Situation Comment: lives with EKLLEY, son, 1 dog. 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 Feels Safe at Home: Yes Assistive Devices: None Physical Exam Genitourinary: OB Exam Abdomen: + vertex OB Exam Monitor Tracing: + external FHT monitor used, + external uterine monitor used and + category I Gross srom + nitrazine, pooling, ferning Results & Data Vital Signs (Past 12 Hours) Vital Signs Pulse BP Pulse Ox 11/22/23 16:10 127 H 100 11/22/23 16:05 150 H 100 11/22/23 16:00 134 H 100 11/22/23 15:55 162 H 100 11/22/23 15:50 117 H 100 11/22/23 15:48 103 H 93 11/22/23 15:45 170 H 100 11/22/23 15:40 156 H 100 11/22/23 15:38 146 H 120/77 11/22/23 15:35 166 H 100 Laboratory Results OB Labs: Blood Type O Positive 05/07/23 Antibody Screen NEGATIVE 05/07/23 Hemoglobin 10.4 g/dl (12.0-16.0) L 10/08/23 Hematocrit 30.2 % (37.0-47.0) L 10/08/23 Mean Corpuscular Volume 85.3 fL (80.0-100.0) 05/07/23 Platelet Count 283 K/uL (130-400) 05/07/23 Rubella IgG Antibody Non Immune (Immune) L 05/07/23 Rapid Plasma Reagin Nonreactive (Nonreactive) 05/07/23 Hepatitis B Surface Antigen Neg (Neg) 08/31/21 Hepatitis B Surface Antigen. NON-REACTIVE (NON-REACTIVE) 05/07/23 Hepatitis C Antibody Neg (Neg) 08/31/21 Hepatitis C Antibody (EIA) NON-REACTIVE (NON-REACTIVE) 05/07/23 HIV (1&2) Ab and P24 Ag, 4th Gener Neg (Neg) 08/31/21 HIV (1&2) Ag and Ab Confirmation NON-REACTIVE (NON-REACTIVE) 05/07/23 OB Optional Labs: Chlamydia trachomatis RNA Not Detected (NotDetected) 05/07/23 Neisseria gonorrhoeae RNA Not Detected (NotDetected) 05/07/23 Thyroid Stimulating Hormone (TSH) 0.919 uIu/ml (0.300-4.500) 09/07/23 Labs Reviewed: cfdna-low risk--mln Diagnostic Findings anterior plac Coding Level of Care Code None Diagnoses Type 1 diabetes mellitus affecting , antepartum O24.019 Previous delivery affecting , antepartum O34.219 Polyhydramnios O40.9XX0 Cholestasis K83.1 SROM (spontaneous rupture of membranes)
[2023-11-22] MEDS: LACTATED RINGER'S 1,000 ML IV SCH (16:40)
[2023-11-22 16:49] LABS: Hemoglobin 12.4 g/dl (12.0-16.0); Mean Corpuscular Hemoglobin 31.2 pg (25.0-34.0); Mean Corpuscular Hgb Conc 34.4 g/dL (32.0-36.0); Mean Corpuscular Volume 90.7 fL (80.0-100.0); Mean Platelet Volume 10.5 fL (9.4-12.4); Platelet Count 181 K/uL (130-400); RDW Standard Deviation 42.8 fL (36.4-46.3); Red Blood Count 3.97 M/uL (4.20-5.40)
--- NOTE | 2023-11-22 16:52 | Ultrasound Report ---
US OB limited HISTORY: 28 years-old Female FHR possible premature rupture of membrane in a patient COMPARISON: 11/19/2023 TECHNIQUE: Multiple real-time sonographic images of the pelvic fractures were obtained assessing seals scale appearance, color and spectral flow with M-mode analysis FINDINGS: Single living intrauterine gestation, heart rate measured at 161 bpm. ASHLI is 8.93, limited by p atient positioning throughout the study. The bacteriologist industrial was reportedly at bedside and requested jose l t no additional images be obtained. IMPRESSION: 1. Single living intrauterine gestation. 2. ASHLI of 8.93. ACT 112: Negative or not required by law. The above report was generated using voice recognition software. It may contain grammatical, syntax o r spelling errors. Electronically signed by: Easton Joyce M.D. 11/22/2023 4:51 PM
--- NOTE | 2023-11-22 17:05 | Anesthesiology Consultation ---
Date of Service November 22, 2023 Assessment & Plan Chart Review Chart Review: Acceptable Risk for Surgery Consults Requested none ASA ASA2E Proposed Anesthesia Anesthesia Type: Spinal Risk / Benefits Reviewed With: PT / POA / Parent / Guardian, Accepts Plan and Informed Consent Obtained History Height/Weight Height: 5 ft 4 in Weight: 95.708 kg Allergies Allergy/AdvReac Type Severity Reaction Status Date / Time No Known Drug Allergies Allergy Unknown Verified 11/22/23 10:12 Medications Home Medications Medication Instructions Recorded Confirmed Last Taken acetone (urine) test (Ketone Urine #50 ea 11/14/21 11/19/23 Unknown Test strips) lancets (Accu-Chek Softclix #150 ea 01/07/22 11/19/23 Unknown Lancets) blood sugar diagnostic (Accu-Chek #150 ea 01/08/22 11/19/23 Unknown Kimberly Plus test strips) blood-glucose meter (Accu-Chek #1 ea 01/08/22 11/19/23 Unknown Kimberly Plus Meter) pen needle, diabetic 32 gauge x #120 ea 04/01/22 11/19/23 Unknown 5/32" (BD Ultra-Fine Moriah Pen Needle) acetone (urine) test (Ketone Urine #50 ea 06/28/23 11/19/23 Unknown Test strips) blood sugar diagnostic (OneTouch #150 ea 06/28/23 11/19/23 Unknown Verio test strips) lancets 33 gauge #150 ea 06/28/23 11/19/23 Unknown insulin glargine 100 unit/mL (3 10 unit (0.1 mL) subcut QPM #15 mL 07/08/23 11/22/23 11/21/23 mL) subcutaneous pen (Lantus Solostar U-100 Insulin) pen needle, diabetic 32 gauge x #150 ea 07/08/23 11/19/23 Unknown 5/32" (BD Ultra-Fine Moriah Pen Needle) insulin lispro 100 unit/mL 20 unit subcut TID 08/18/23 11/22/23 11/22/23 subcutaneous pen (Humalog KwikPen (U-100) Insulin) ursodiol 300 mg capsule 300 mg PO BID #60 caps 11/19/23 11/22/23 Unknown ferrous sulfate 325 mg (65 mg 325 mg PO QAM 11/22/23 11/22/23 11/22/23 iron) tablet (Iron (ferrous sulfate)) [id number] 1 mg 1 tab PO QAM 11/22/23 11/22/23 11/21/23 tablet Past Medical History Medical History History of COVID-19 (2021) "resolved" Anemia Cholestasis during , antepartum T2DM (type 2 diabetes mellitus) Takes insulin during Exercise / Class Metabolic Activity II 4-5 Yardwork/Stairs/Walk up hill Past Family History Family History Mother Hepatitis Grandfather (Paternal) Colorectal cancer Uncle Colorectal cancer Denies family history of Ovarian cancer Breast cancer Uterine cancer Past Surgical History Surgical History Delivery by section (03/06/22) Primary : Dosed epidural, [facility] (failure to progress) Past Anesthesia History No Hx of Anesthesia Complications and No Family Hx of Anesthesia Complications History of PONV No Hx of PONV and No Hx of Motion Sickness Social History Smoking Status: Never smoker Do You Dip or Chew Tobacco: No Hx Alcohol Use: No Hx Substance Use: No substance use type: does not use Physical Exam Vital Signs Last Vital Signs Temp 98.8 F 11/22/23 16:29 Pulse 128 H 11/22/23 16:56 Resp 20 11/22/23 16:29 BP 120/77 11/22/23 15:38 Pulse Ox 100 11/22/23 16:56 ENMT Mouth: no dentition abnormality Thyromental Distance: > or= 3.5 Finger Breadths Mallampati Class: II Neck normal visual inspection Respiratory normal respiratory effort Auscultation: lungs clear to auscultation bilaterally Cardiovascular Rate/Rhythm: regular rate and regular rhythm Testing Laboratory Results 11/22/23 16:27 11/22/23 16:28 POC Glucose 127 H
[2023-11-22] MEDS ORDERED: MoRPHine SULFATE PF 1 MG/ML 10 ML AMP/VIAL ONE (17:06)
[2023-11-22] MEDS ORDERED: fentaNYL citrate PF 100 MCG/2 ML VIAL ONE (17:06)
[2023-11-22] MEDS ORDERED: SODIUM CHLORIDE 0.9% 250 ML IV PRN (19:41)
[2023-11-22] MEDS: ceFAZolin 3000MG 3,000 MG/72.5 ML BAG IV SCH (20:17)
[2023-11-22] MEDS: AZITHROMYCIN 500 MG in DEXTROSE 5% 250 ML IV ONE (20:18)
[2023-11-22] MEDS: CITRIC ACID/SODIUM CITRATE 15 ML UDC PO SCH (20:18)
[2023-11-22] MEDS ORDERED: NALOXONE HCL 0.4 MG/1 ML VIAL/CARP IV PRN (21:15)
[2023-11-22] MEDS ORDERED: NALOXONE HCL 0.08 MG in SYRINGE 1.8 ML IV PRN (21:15)
[2023-11-22] MEDS ORDERED: SODIUM CHLORIDE 0.9% 1,000 ML IV SCH (21:15)
[2023-11-22] MEDS ORDERED: OXYTOCIN 10 UNITS/ML VIAL ONE ×2 (21:15→21:50)
[2023-11-22] MEDS ORDERED: ePHEDrine sulfate 50 MG/ML AMP IV PRN (21:15)
[2023-11-22] MEDS ORDERED: NO NARCOTICS OR SEDATIVES SCH (21:15)
[2023-11-22] MEDS ORDERED: NALOXONE HCL 1 MG in SODIUM CHLORIDE 0.9% 1,000 ML IV PRN (21:15)
[2023-11-22] MEDS ORDERED: DC INTRASPINAL MORPHINE SCH (21:15)
[2023-11-22] MEDS ORDERED: NALBUPHINE HCL 5 MG in SYRINGE 0 ML IV PRN (21:15)
[2023-11-22] MEDS ORDERED: ONDANSETRON INJ 2 MG/ML 2 ML VIAL IV PRN (21:15)
[2023-11-22] MEDS ORDERED: LACTATED RINGER'S 500 ML IV PRN (21:15)
[2023-11-22] MEDS ORDERED: MoRPHine SULFATE PF 1 MG/ML 10 ML AMP/VIAL INT SPINAL ONE (21:15)
[2023-11-22] MEDS ORDERED: diphenhydrAMINE 50 MG/ML VIAL IV PRN (21:15)
[2023-11-22] MEDS ORDERED: MEPERIDINE HCL 25 MG/ML CARP/VIAL IV PRN (21:15)
[2023-11-22] MEDS ORDERED: ONDANSETRON INJ 2 MG/ML 2 ML VIAL ONE (21:23)
[2023-11-22] MEDS ORDERED: MIDAZOLAM HCL 1 MG/ML 2ML VIAL ONE (21:44)
[2023-11-22] MEDS ORDERED: KETOROLAC 30 MG/ML VIAL ONE (22:24)
[2023-11-22] MEDS ORDERED: PHARMACY GLYCEMIC MGMT CONSULT PRN (22:43)
--- NOTE | 2023-11-22 22:53 | Operative Report ---
PG Post Operative Report Pre & Post Diagnosis Operation Date: 11/22/23 19:30 Pre-Op Diagnosis: Intrauterine at 35.4 weeks PPROM Polyhydramnios Type 1 DM Cholestasis C/S X1 desires repeat Post-Op Diagnosis: Intrauterine at 35.4 weeks PPROM Polyhydramnios Type 1 DM Cholestasis C/S X1 desires repeat I identified the patient and participated in the time-out.: Yes Procedure Operation Date: 11/22/23 19:30 Actual Procedures p Repeat Low Transverse Section. Live female child at 2156 - Latoya Boston MD Surgeon Latoya Boston MD Senior Energy Consultant MD Marina Estimated Blood Loss 870 Findings Consistent with Post-Op Diagnosis Pt had to convert to general anesthesia due to discomfort. Very edematous subcutaneous tissue. Dense fascial adhesions to rectus. Rectus scarred tightly. Normal appearing uterus, bilateral fallopian tubes, and ovaries. Viable female weighing 6lbs 13oz, APGARs of 8 and 8 Fluids 1500cc crystalloid, UOP 150cc by israel Specimens Placenta, cord blood Drains [place] draining clear urine Anesthesia Type Spinal Complications none Disposition Accompanied Patient To Recovery: Yes Disposition: L&D Indications 28 yo at 35 4/7 wga presented for evaluation due to decreased movement. During triage, pt underwent SROM in the room. Given GA, she was recommended to proceed with delivery. She declined tubal sterilization Description of Procedure The patient was taken to the operating room after consents were ensured. The patient was properly identified. Spinal anesthesia was obtained without difficulty. The patient was placed in a dorsal supine position with left lateral tilt, then prepped and draped in normal sterile fashion. Surgical time out was performed. Antibiotics were given for prophylaxis. Anesthesia was tested to ensure adequate surgical levels. Pfannenstiel skin incision was performed and carried down to the underlying fascia with a knife. The fascia was then nicked in the midline and extended laterally with pickelysia and Alfred scissors. During this time, pt became very uncomfortable and surgeon was unable to continue due to pt discomfort. Spinal anesthesia was then converted to general. Superior portion of the fascia was grasped with Kochers x2 and elevated off the underlying rectus muscles using blunt and sharp dissection. Inferior portion of the fascia was then grasped with Mohini clamps x2 and also elevated off the underlying muscles with blunt and sharp dissection. Midline was identified and rectus adhesions dissected. The peritoneum was then entered sharply and extended to provide adequate room for delivery of baby. A hand was inserted into the abdomen, uterus was noted to be clear of adhesions. Bladder blade was inserted, bladder flap was created in the usual fashion. A low transverse uterine incision was made in the uterus and extended bluntly in a superior to inferior fashion. Amniotomy was made with clear fluid at the time of rupture. head was grasped and elevated to the hysterotomy in an atraumatic fashion however could not be delivered through. Kiwi vacuum was applied to flexion point and increased to green zone. With fundal pressure and one pull, the baby delivered in MITCHELL position, no nuchal cord. Remainder of the body delivered without incident. Nose and mouth were bulb suctioned on the surgical field. The cord was double clamped and cut, baby was handed off to awaiting pediatrics staff. Cord segment and blood were obtained. Placenta was then expressed from the uterus. The uterus was exteriorized. Several passes were made inside the uterus to remove the remaining membranes. Attention was then turned to the hysterotomy, which was then closed with a running locked suture of 0 Vicryl on a CTX needle. An imbricating layer was then performed using 0-Monocryl. There was noted to be good hemostasis. The posterior cul-de-sac was then inspected and cleaned of clot and debris. The hysterotomy was again inspected and noted to be hemostatic. The uterus was returned to the abdomen. The right and left pericolic gutters were cleaned of all clot and debris. The hysterotomy was again noted to be hemostatic. Space of Retzius was noted to be hemostatic. The fascia was then closed with a running suture of 0 Vicryl on a CT1 needle. Subcutaneous tissue was copiously irrigated and noted to be hemostatic. Subcutaneous tissue was re-approximated using 2-0 plain gut. The skin was then closed with a running suture of 3-0 Monocryl in a subcuticular fashion. At termination of the procedure, fundal pressure was applied and a moderate amount of lochia was expressed. Pressure dressing was applied to the patient. She tolerated the procedure well. All sponge, needle, instrument counts were correct x 2. I attest to the content of the Intraoperative Record and any orders documented therein. Any exceptions are noted below. OB Procedure Charges 00455
[2023-11-22] MEDS ORDERED: HYDROCORTISONE ACETATE 25 MG SUPP PR PRN (23:00)
[2023-11-22] MEDS ORDERED: BENZOCAINE 20% SPRY 85 APPLN/85 GM CAN EXT PRN (23:00)
[2023-11-22] MEDS ORDERED: SENNA 8.6 MG TAB PO PRN (23:00)
[2023-11-22] MEDS ORDERED: MAGNESIUM HYDROXIDE SUSP 30 ML UDC PO PRN (23:00)
--- NOTE | 2023-11-22 23:00 | Anesthesiology Progress Note ---
Date of Service November 22, 2023 Anesthesia Post Procedure Vital Signs Vital Signs: Temp Pulse Resp BP Pulse Ox 11/22/23 22:53 126 H 100 11/22/23 22:51 118 H 108/56 L 11/22/23 22:47 126 H 100 11/22/23 22:42 128 H 99/51 L 96 11/22/23 20:48 133 H 98 11/22/23 20:43 135 H 99 11/22/23 20:38 133 H 98 11/22/23 20:33 138 H 100 11/22/23 20:28 136 H 99 11/22/23 20:23 140 H 99 11/22/23 20:18 138 H 98 11/22/23 20:13 136 H 100 11/22/23 20:08 135 H 100 11/22/23 20:03 140 H 100 11/22/23 19:58 141 H 100 11/22/23 19:53 129 H 100 11/22/23 19:49 130 H 126/58 L 11/22/23 19:48 131 H 99 11/22/23 19:37 132 H 100 11/22/23 19:32 128 H 100 11/22/23 19:27 127 H 100 11/22/23 19:22 125 H 100 11/22/23 19:17 121 H 100 11/22/23 19:12 120 H 98 11/22/23 19:07 123 H 100 11/22/23 19:02 121 H 100 11/22/23 19:00 18 11/22/23 19:00 18 11/22/23 18:57 127 H 100 11/22/23 18:52 132 H 100 11/22/23 18:47 138 H 99 11/22/23 18:42 133 H 100 11/22/23 18:37 129 H 99 11/22/23 18:32 118 H 85 L 11/22/23 18:29 121 H 91 11/22/23 18:27 134 H 100 11/22/23 18:22 109 H 99 11/22/23 18:11 121 H 100 11/22/23 18:06 120 H 99 11/22/23 18:01 120 H 98 11/22/23 18:00 18 11/22/23 18:00 18 11/22/23 17:56 122 H 100 11/22/23 17:51 128 H 100 11/22/23 17:46 127 H 100 11/22/23 17:41 127 H 98 11/22/23 17:36 136 H 99 11/22/23 17:31 133 H 100 11/22/23 17:30 20 11/22/23 17:30 20 11/22/23 17:26 123 H 98 11/22/23 17:21 128 H 99 11/22/23 17:16 116 H 100 11/22/23 17:11 132 H 99 11/22/23 17:06 130 H 100 11/22/23 17:01 127 H 100 11/22/23 17:00 20 11/22/23 17:00 20 11/22/23 16:56 128 H 100 11/22/23 16:51 130 H 100 11/22/23 16:46 129 H 100 11/22/23 16:30 20 11/22/23 16:30 20 11/22/23 16:29 98.8 F 20 11/22/23 16:15 130 H 100 11/22/23 16:10 127 H 100 11/22/23 16:05 150 H 100 11/22/23 16:00 134 H 100 11/22/23 15:55 162 H 100 11/22/23 15:50 117 H 100 11/22/23 15:48 103 H 93 11/22/23 15:45 170 H 100 11/22/23 15:40 156 H 100 11/22/23 15:38 98.8 F 146 H 20 120/77 11/22/23 15:35 166 H 100 Transfer of Care Handoff Completed per policy Notes Mental Status: alert / awake / arousable and participated in evaluation Patient Amnestic to Procedure: Yes Nausea / Vomiting: adequately controlled Pain: adequately controlled Airway Patency, RR, SpO2: stable & adequate BP & HR: stable & adequate Hydration State: stable & adequate Neuraxial Anesthesia: was administered and sensory block is resolving Anesthetic Complications: no major complications apparent and Pt Satisfied with anesthetic care
[2023-11-23] MEDS: OXYTOCIN 20 UNITS/LR 1,002 ML IV SCH (00:52)
[2023-11-23] MEDS: DIPHTHER/TETAN/PERTUS Vaccine (Tdap, Adol/Adult) 0.5mL IM ONE (02:30)
[2023-11-23] MEDS ORDERED: GLUCAGON FOR INJ 1 MG VIAL IM PRN (05:00)
[2023-11-23] MEDS ORDERED: GLUCOSE 40% GEL 15 GM TUBE PO PRN (05:00)
[2023-11-23] MEDS ORDERED: GLUCOSE 10 TAB/TUBE PO PRN (05:00)
[2023-11-23] MEDS ORDERED: DEXTROSE 50% 50 ML SYRINGE IV PRN (05:00)
[2023-11-23] MEDS ORDERED: CARBOHYDRATES FOR HYPOGLYCEMIA PO PRN (05:00)
--- NOTE | 2023-11-23 06:06 | Obstetrical Progress Note ---
Date of Service <Ken Madrigal MD - Last Filed: 11/23/23 07:20> November 23, 2023 Assessment & Plan <Ken Madrigal MD - Last Filed: 11/23/23 07:20> (1) S/P : (2) Type 1 diabetes mellitus affecting , antepartum: Plan 28 yo , status post w/ EBL of 870 mL on 11/23/23 - Pt doing well clinically. Feels well today. Eating well, voiding w/ [place], not ambulating yet. Pain well controlled with PRN pain meds. - Routine care -- OOB, ambulation, diet progression as tolerated Vital Signs reviewed and WNL. (Tmax at 36.7) Hemoglobin Reviewed. 12.4 (11/22/23) 10.1 (today). Blood Type: O+, GBS status not screened (pt presented w/ PPROM at 35 4/7 wks), Rubella Non-Immune. Encourage ambulation, monitor and control pain with Motrin PRN, resume regular diet, monitor lochia. Breast feeding encouraged. After discharge will have 6 week follow-up with Dr. Boston. <Latoya Boston MD - Last Filed: 11/23/23 08:45> (1) S/P : (2) Type 1 diabetes mellitus affecting , antepartum: Subjective <Ken Madrigal MD - Last Filed: 11/23/23 07:20> Ambulation: limited ambulation Voiding: israel catheter in place Passing Gas:: No Diet Tolerance:: clear liquids Lochia:: Small Feeding Type:: bottle feeding Current Pain Level(1-10): 1 (pelvic area pain) Constitutional: no fever, no chills, no fatigue or no weakness Eyes: no diplopia or no worsening vision Respiratory: + cough (few days Hx); no chest congestion or no dyspnea Cardiovascular: no chest pain or no palpitations Gastrointestinal: no abdominal pain, no nausea, no vomiting or no diarrhea/loose stools Genitourinary (female): no dysuria or no urinary frequency Neurologic: no loss of sensation, no tingling, no numbness, no headache(s) or no confusion Allergy / Immunological: + urticaria (on her forehead) Physical Exam <Ken Madrigal MD - Last Filed: 11/23/23 07:20> Constitutional WD/WN, vitals as above Respiratory normal respiratory effort, lungs clear to auscultation Cardiovascular Rate/Rhythm: regular rhythm and + tachycardic Heart Sounds: normal S1 and normal S2; no gallop and no murmur Extremities: normal capillary refill; no calf tenderness Gastrointestinal (Abdomen) Inspection/Auscultation: abdomen normal to inspection, normal bowel sounds, + significant pannus and + abdominal surgical incision (mildly erythematous, mildly edematous w/ some very minor bleeding) Psychiatric A+Ox3, euthymic affect Results & Data <Ken Madrigal MD - Last Filed: 11/23/23 07:20> Vital Signs (Past 12 Hours) Vital Signs Temp Pulse Pulse Resp BP BP Pulse Ox 11/23/23 05:17 36.6 C 120 H 18 119/76 100 11/23/23 04:21 18 96 11/23/23 03:12 116 H 11/23/23 03:11 16 100 11/23/23 02:25 18 98 11/23/23 01:20 16 97 11/23/23 01:20 11/23/23 01:20 36.5 C 116 H 16 111/67 97 11/23/23 00:48 122 H 99 11/23/23 00:45 36.9 C 16 11/23/23 00:43 125 H 97 11/23/23 00:41 125 H 106/56 L 11/23/23 00:38 126 H 95 11/23/23 00:33 128 H 96 11/23/23 00:31 122 H 102/57 L 11/23/23 00:28 126 H 97 11/23/23 00:23 122 H 96 11/23/23 00:21 122 H 102/62 11/23/23 00:18 117 H 96 11/23/23 00:15 16 11/23/23 00:13 120 H 97 11/23/23 00:11 121 H 102/58 L 11/23/23 00:08 117 H 94 11/23/23 00:03 117 H 96 11/23/23 00:01 121 H 104/55 L 11/22/23 23:58 118 H 95 11/22/23 23:53 116 H 94 11/22/23 23:51 122 H 104/57 L 11/22/23 23:48 117 H 97 11/22/23 23:45 16 11/22/23 23:45 14 11/22/23 23:43 116 H 97 11/22/23 23:41 120 H 101/59 L 11/22/23 23:38 117 H 95 11/22/23 23:35 14 11/22/23 23:33 94 11/22/23 23:33 116 H 11/22/23 23:33 116 H 94 11/22/23 23:31 115 H 106/57 L 11/22/23 23:28 117 H 95 11/22/23 23:27 118 H 94 11/22/23 23:25 16 11/22/23 23:23 119 H 98 11/22/23 23:21 118 H 111/63 11/22/23 23:18 119 H 99 11/22/23 23:15 15 11/22/23 23:13 119 H 97 11/22/23 23:11 117 H 116/62 11/22/23 23:08 123 H 97 11/22/23 23:06 118 H 93 11/22/23 23:05 15 11/22/23 23:03 119 H 99 11/22/23 23:01 117 H 112/59 L 11/22/23 22:58 120 H 99 11/22/23 22:55 16 11/22/23 22:53 126 H 100 11/22/23 22:51 118 H 108/56 L 11/22/23 22:47 126 H 100 11/22/23 22:45 36.9 C 16 11/22/23 22:42 128 H 99/51 L 96 11/22/23 20:48 133 H 98 11/22/23 20:43 135 H 99 11/22/23 20:38 133 H 98 11/22/23 20:33 138 H 100 11/22/23 20:28 136 H 99 11/22/23 20:23 140 H 99 11/22/23 20:18 138 H 98 11/22/23 20:13 136 H 100 11/22/23 20:08 135 H 100 11/22/23 20:03 140 H 100 11/22/23 19:58 141 H 100 11/22/23 19:53 129 H 100 11/22/23 19:49 130 H 126/58 L 11/22/23 19:48 131 H 99 11/22/23 19:37 132 H 100 11/22/23 19:32 128 H 100 11/22/23 19:27 127 H 100 11/22/23 19:22 125 H 100 11/22/23 19:17 121 H 100 11/22/23 19:12 120 H 98 11/22/23 19:07 123 H 100 11/22/23 19:02 121 H 100 11/22/23 19:00 18 11/22/23 19:00 18 11/22/23 18:57 127 H 100 11/22/23 18:52 132 H 100 11/22/23 18:47 138 H 99 11/22/23 18:42 133 H 100 11/22/23 18:37 129 H 99 11/22/23 18:32 118 H 85 L 11/22/23 18:29 121 H 91 11/22/23 18:27 134 H 100 11/22/23 18:22 109 H 99 11/22/23 18:11 121 H 100 11/22/23 18:06 120 H 99 O2 Del Method 11/23/23 05:17 Room Air 11/23/23 04:21 11/23/23 03:12 11/23/23 03:11 11/23/23 02:25 11/23/23 01:20 11/23/23 01:20 Room Air 11/23/23 01:20 Room Air 11/23/23 00:48 11/23/23 00:45 11/23/23 00:43 11/23/23 00:41 11/23/23 00:38 11/23/23 00:33 11/23/23 00:31 11/23/23 00:28 11/23/23 00:23 11/23/23 00:21 11/23/23 00:18 11/23/23 00:15 11/23/23 00:13 11/23/23 00:11 11/23/23 00:08 11/23/23 00:03 11/23/23 00:01 11/22/23 23:58 11/22/23 23:53 11/22/23 23:51 11/22/23 23:48 11/22/23 23:45 11/22/23 23:45 11/22/23 23:43 11/22/23 23:41 11/22/23 23:38 11/22/23 23:35 11/22/23 23:33 11/22/23 23:33 11/22/23 23:33 11/22/23 23:31 11/22/23 23:28 11/22/23 23:27 11/22/23 23:25 11/22/23 23:23 11/22/23 23:21 11/22/23 23:18 11/22/23 23:15 11/22/23 23:13 11/22/23 23:11 11/22/23 23:08 11/22/23 23:06 11/22/23 23:05 11/22/23 23:03 11/22/23 23:01 11/22/23 22:58 11/22/23 22:55 11/22/23 22:53 11/22/23 22:51 11/22/23 22:47 11/22/23 22:45 11/22/23 22:42 11/22/23 20:48 11/22/23 20:43 11/22/23 20:38 11/22/23 20:33 11/22/23 20:28 11/22/23 20:23 11/22/23 20:18 11/22/23 20:13 11/22/23 20:08 11/22/23 20:03 11/22/23 19:58 11/22/23 19:53 11/22/23 19:49 11/22/23 19:48 11/22/23 19:37 11/22/23 19:32 11/22/23 19:27 11/22/23 19:22 11/22/23 19:17 11/22/23 19:12 11/22/23 19:07 11/22/23 19:02 11/22/23 19:00 11/22/23 19:00 11/22/23 18:57 11/22/23 18:52 11/22/23 18:47 11/22/23 18:42 11/22/23 18:37 11/22/23 18:32 11/22/23 18:29 11/22/23 18:27 11/22/23 18:22 11/22/23 18:11 11/22/23 18:06 Supervising Physician <Latoya Boston MD - Last Filed: 11/23/23 08:45> Co-Signing Physician Notes Resident Physician Supervision Note: I interviewed and examined the patient. Discussed with Dr. Madrigal and agree with findings and plan as documented in the note. Any exceptions or clarifications are listed here: POD1 s/p rLTCS after PPROM. VSS, exam benign and wnl. Dressing replaced due to drainage but incision is c/d/i w/o active bleeding - likely just oozing due to subcu edema. Continue routine pp care Documented By: Latoya Boston MD
[2023-11-23 06:45] LABS: Basophils # (auto) 0.02 K/uL (0.00-0.20); Basophils % (auto) 0.2 %; Eosinophils # (auto) 0.02 K/uL (0.00-0.50); Eosinophils % (auto) 0.2 %; Hematocrit (blood only) 29.6 % (37.0-47.0); Hemoglobin 10.1 g/dl (12.0-16.0); Immature Granulocytes # (auto) 0.11 K/uL (0.01-0.20); Immature Granulocytes % (auto) 0.9 %; Lymphocytes # (auto) 2.26 K/uL (1.20-3.40); Lymphocytes % (auto) 18.5 %; Mean Corpuscular Hgb Conc 34.1 g/dL (32.0-36.0); Mean Corpuscular Volume 90.8 fL (80.0-100.0); Mean Platelet Volume 10.5 fL (9.4-12.4); Monocytes # (auto) 0.57 K/uL (0.11-0.59); Monocytes % (auto) 4.7 %; Neutrophils # (auto) 9.25 K/uL (1.40-6.50); Neutrophils % (auto) 75.5 %; Platelet Count 186 K/uL (130-400); RDW Standard Deviation 43.1 fL (36.4-46.3); Red Blood Count 3.26 M/uL (4.20-5.40); White Blood Count 12.23 K/ul (4.8-10.8)
[2023-11-23] MEDS: PRENATAL VITAMIN 1 TAB PO SCH (08:50)
[2023-11-23] MEDS: DOCUSATE SODIUM 100 MG CAP PO SCH (08:50)
[2023-11-23] MEDS: FERROUS SULFATE 325 MG TAB PO SCH (08:51)
[2023-11-23] MEDS: SIMETHICONE 80 MG CHEW PO SCH (08:51)
[2023-11-23] MEDS: INSULIN ASPART PER UNIT CHARGE SC SCH (08:55)
--- NOTE | 2023-11-23 09:29 | Pharmacy Report ---
Pharmacy Glycemic Short Note 2 - Date of Service November 23, 2023 - Glycemic Short BSG Results (Last 24 hours): 11/22/23 11/23/23 16:28 08:05 POC Glucose 127 H 152 H OUTPATIENT ANTIDIABETIC REGIMEN: * Lantus 10 units HS * Humalog 20 units with meals * HbA1c 5.3% (09/07/23) ASSESSMENT: * Nancy is a 28 YOF admitted s/p ceasarean section and a history of T1DM (probably type 1 per endocrine). Pharmacy has been consulted to assist with glycemic management while inpatient. * Met with Nancy this AM, confirmed regimen prior to delivery as above. Discussed plan moving forward, she may require less insulin post-, she is agreeable to below plan. * Fasting BSG this AM slightly above goal range but acceptable, likely due to no basal insulin yesterday evening with delivery. Will add a scale at bedtime up to home Lantus dose based on BSG. * Novolog initiated between a weight based stress of 1-2 PLAN FOR INPATIENT GLYCEMIC CONTROL: * Hold outpatient oral diabetes medications * Basal insulin * Lantus 0-10 units SQ HS (see eMAR for additional details) * Bolus insulin * NovoLog per scale ACHS or Q6hrs while NPO * Goal Range: Low 110 mg/dL - High 140 mg/dL * Correction Factor: 30 mg/dL/unit * Nutritional / Prandial insulin per carb ratio of 1 unit per 10 grams CHO consumed
[2023-11-23] MEDS: LACTATED RINGER'S 1,000 ML IV SCH (09:53)
[2023-11-23] MEDS: KETOROLAC 30 MG/ML VIAL IV PRN (15:00)
[2023-11-23] MEDS ORDERED: oxyCODONE/ACETAMINOPHEN 5mg/325mg TAB PO PRN (15:15)
[2023-11-23] MEDS ORDERED: PROMETHAZINE HCL 25 MG in SODIUM CHLORIDE 0.9% 50 ML IV PRN (15:15)
[2023-11-23] MEDS ORDERED: ONDANSETRON INJ 2 MG/ML 2 ML VIAL IV PRN (15:15)
[2023-11-23] MEDS ORDERED: diphenhydrAMINE 50 MG/ML VIAL IV PRN (15:15)
[2023-11-23] MEDS ORDERED: diphenhydrAMINE Capsule 25 MG CAP PO PRN (15:15)
[2023-11-23] MEDS ORDERED: KETOROLAC 30 MG/ML VIAL IV PRN (15:15)
[2023-11-23] MEDS: bisacodyL 5 MG TABEC PO SCH (21:23)
[2023-11-23] MEDS: LANTUS PER UNIT CHARGE SC SCH (22:02)
[2023-11-24] MEDS ORDERED: oxyCODONE/ACETAMINOPHEN 5mg/325mg TAB PO PRN
[2023-11-24] MEDS: ACETAMINOPHEN 500 MG TAB PO PRN (00:52)
--- NOTE | 2023-11-24 06:03 | Obstetrical Progress Note ---
Date of Service <Ken Madrigal MD - Last Filed: 11/24/23 10:27> November 24, 2023 Assessment & Plan <Ken Madrigal MD - Last Filed: 11/24/23 10:27> (1) S/P : Plan 28 yo , status post w/ EBL of 870 mL on 11/23/23 - Pt doing well clinically, although she did spike a mild fever overnight of 37.8 C. Eating well, voiding w/ [place], not ambulating yet. Pain well controlled with PRN pain meds. - Routine care -- OOB, ambulation, diet progression as tolerated Vital Signs reviewed and WNL, with the exception of a Tmax at 37.8 overnight and some persistent mild tachycardia. Patient's incision is mildly erythematous, and though not overwhelmingly concerning for infection, with elevated vital signs noted above, cephalexin, 500 mg, QID, PO was started. Hemoglobin Reviewed. 12.4 (11/22/23), 10.1 (11/23/23), 9.4 (today). Blood Type: O+, GBS status not screened (pt presented w/ PPROM at 35 4/7 wks), Rubella Non-Immune. Encourage ambulation, monitor and control pain with Motrin PRN, resume regular diet, monitor lochia. Breast feeding encouraged. After discharge will have 6 week follow-up with Dr. Boston.Patient will be staying an extra day due to concerns for infection and concerns for significant edema noted during in abdominal fascia. <Janeth Benson MD, FACOG - Last Filed: 11/24/23 19:06> (1) S/P : Subjective <Ken Madrigal MD - Last Filed: 11/24/23 10:27> Ambulation: ambulating normally Voiding: no voiding problems Passing Gas:: Yes Diet Tolerance:: regular diet Lochia:: Small Feeding Type:: bottle feeding Current Pain Level(1-10): 3 (when standing in incision area) Constitutional: + fever (37.8 o/n) and + chills; no fatigue or no weakness Eyes: no diplopia or no worsening vision Respiratory: + cough (few days Hx); no chest congestion or no dyspnea Cardiovascular: no chest pain or no palpitations Gastrointestinal: no abdominal pain, no nausea, no vomiting or no diarrhea/loose stools Genitourinary (female): no dysuria or no urinary frequency Neurologic: no loss of sensation, no tingling, no numbness, no headache(s) or no confusion Allergy / Immunological: no urticaria (on her forehead, has resolved now) Physical Exam <Ken Madrigal MD - Last Filed: 11/24/23 10:27> Constitutional WD/WN, vitals as above Respiratory normal respiratory effort, lungs clear to auscultation Cardiovascular Rate/Rhythm: regular rhythm and + tachycardic Heart Sounds: normal S1 and normal S2; no gallop and no murmur Extremities: normal capillary refill; no calf tenderness Gastrointestinal (Abdomen) Inspection/Auscultation: abdomen normal to inspection, normal bowel sounds, + significant pannus and + abdominal surgical incision (mildly erythematous, mildly edematous w/ some very minor bleeding) Psychiatric A+Ox3, euthymic affect Results & Data <Ken Madrigal MD - Last Filed: 11/24/23 10:27> Vital Signs (Past 12 Hours) Vital Signs Temp Pulse Resp BP Pulse Ox O2 Del Method 11/24/23 04:00 37.0 C 101 H 16 103/67 97 Room Air 11/24/23 01:59 37.3 C 11/24/23 00:35 37.8 C H 109 H 16 103/64 97 Room Air 11/23/23 20:00 37.1 C 114 H 18 103/65 97 Room Air Supervising Physician <Janeth Benson MD, FACOG - Last Filed: 11/24/23 19:06> Co-Signing Physician Notes Resident Physician Supervision Note: I interviewed and examined the patient. Discussed with Dr. Madrigal and agree with findings and plan as documented in the note. Any exceptions or clarifications are listed here: [None] Documented By: Janeth Benson MD, FACOG
[2023-11-24 07:26] LABS: Hematocrit (blood only) 28.3 % (37.0-47.0); Hemoglobin 9.4 g/dl (12.0-16.0)
[2023-11-24] MEDS: IBUPROFEN 600 MG TAB PO PRN (08:07)
[2023-11-24 08:32] LABS: Estimated Average Glucose 131 mg/dl; Hemoglobin A1C 6.2 % (4.5-5.6)
[2023-11-24] MEDS: cephALEXin 500 MG CAP PO SCH (14:45)
[2023-11-24] MEDS ORDERED: bisacodyL 10 MG SUPP PR PRN (22:42)
--- NOTE | 2023-11-25 06:10 | Obstetrical Progress Note ---
Date of Service <Ken Madrigal MD - Last Filed: 11/25/23 07:40> November 25, 2023 Assessment & Plan <Ken Madrigal MD - Last Filed: 11/25/23 07:40> (1) S/P : Plan 28 yo , status post w/ EBL of 870 mL on 11/23/23 - Pt doing well clinically, no fevers spiked overnight. Eating well, voiding w/ [place], not ambulating yet. Pain well controlled with PRN pain meds. - Routine care -- OOB, ambulation, diet progression as tolerated Vital Signs reviewed and WNL (temps WNL) with exception of some persistent mild tachycardia. Patient's incision is mildly erythematous, and though not overwhelmingly concerning for infection, with elevated vital signs noted above, cephalexin, 500 mg, QID, PO was started. Hemoglobin Reviewed. 12.4 (11/22/23), 10.1 (11/23/23), 9.4 (today). Blood Type: O+, GBS status not screened (pt presented w/ PPROM at 35 4/7 wks), Rubella Non-Immune. Discussed the Rubella vaccine with the patient, talked about how it would help protect her , she decided to have it. Encourage ambulation, monitor and control pain with Motrin PRN, resume regular diet, monitor lochia. Breast feeding encouraged. After discharge will have 6 week follow-up with Dr. Boston.Patient will be staying an extra day due to concerns for infection and concerns for significant edema noted during in abdominal fascia. <Pauly Doyle DO - Last Filed: 11/25/23 07:50> (1) S/P : Plan 28 yo , status post w/ EBL of 870 mL on 11/23/23 - Pt doing well clinically, no fevers spiked overnight. Eating well, voiding w/ [place], not ambulating yet. Pain well controlled with PRN pain meds. - Routine care -- OOB, ambulation, diet progression as tolerated Vital Signs reviewed and WNL (temps WNL) with exception of some persistent mild tachycardia. Patient's incision is mildly erythematous, and though not overwhelmingly concerning for infection, with elevated vital signs noted above, cephalexin, 500 mg, QID, PO was started. Hemoglobin Reviewed. 12.4 (11/22/23), 10.1 (11/23/23), 9.4 (today). Blood Type: O+, GBS status not screened (pt presented w/ PPROM at 35 4/7 wks), Rubella Non-Immune. Discussed the Rubella vaccine with the patient, talked about how it would help protect her , she decided to have it. Encourage ambulation, monitor and control pain with Motrin PRN, resume regular diet, monitor lochia. Breast feeding encouraged. After discharge will have 6 week follow-up with Dr. Boston. Subjective <Ken Madrigal MD - Last Filed: 11/25/23 07:40> Ambulation: ambulating normally Voiding: no voiding problems Passing Gas:: Yes Diet Tolerance:: regular diet Lochia:: Small Feeding Type:: bottle feeding Current Pain Level(1-10): 2 (incisional site pain) Constitutional: no fever, no chills, no fatigue or no weakness Eyes: no diplopia or no worsening vision Respiratory: + cough (few days Hx); no chest congestion or no dyspnea Cardiovascular: no chest pain or no palpitations Gastrointestinal: no abdominal pain, no nausea, no vomiting or no diarrhea/loose stools Genitourinary (female): no dysuria or no urinary frequency Neurologic: no loss of sensation, no tingling, no numbness, no headache(s) or no confusion Allergy / Immunological: no urticaria (on her forehead, has resolved now) Physical Exam <Ken Madrigal MD - Last Filed: 11/25/23 07:40> Constitutional WD/WN, vitals as above Respiratory normal respiratory effort, lungs clear to auscultation Cardiovascular Rate/Rhythm: regular rhythm and + tachycardic Heart Sounds: normal S1 and normal S2; no gallop and no murmur Extremities: normal capillary refill; no calf tenderness Gastrointestinal (Abdomen) Inspection/Auscultation: abdomen normal to inspection, normal bowel sounds, + significant pannus and + abdominal surgical incision (mildly erythematous, mildly edematous w/ some very minor bleeding) Psychiatric A+Ox3, euthymic affect Results & Data <Ken Madrigal MD - Last Filed: 11/25/23 07:40> Vital Signs (Past 12 Hours) Vital Signs Temp Pulse Resp BP Pulse Ox O2 Del Method 11/25/23 00:10 36.7 C 98 H 18 112/70 98 Room Air 11/24/23 20:10 Room Air 11/24/23 20:10 36.8 C 107 H 18 120/76 96 Room Air Supervising Physician <Pauly Doyle DO - Last Filed: 11/25/23 07:50> Co-Signing Physician Notes Resident Physician Supervision Note: I was present with Dr. Madrigal during the history and exam. I discussed the case with the resident and agree with the findings and plan as documented in the note. Any exceptions or clarifications are listed here: POD#2 doing well. Desires DC home. Started on keflex yesterday for cellulitis - incision looks clean/dry/intact, not infected. However, she has a significant amount of dependent abdominal edema, this is red, improved since yesterday. Will continue the PO keflex QID x 10d. Rx sent for this. Dr Gray sent Rx for percocet. Patient has a plan to follow up with endocrine office today for instruction on oral diabetes medications and management. She will come to office in 1 week for incision check. Agreeable to MMR vaccine - will get before she leaves hospital today. Documented By: Pauly Doyle DO
[2023-11-25] MEDS: MEASLES, MUMPS & RUBELLA VIRUS VACCINE (MMR) VIAL SQ ONE (08:57)
--- NOTE | 2023-11-29 08:36 | Discharge Summary ---
Date of Service November 29, 2023 Admission HPI Per Admitting Provider 28 yo at 35 4/7 wga presented for prolonged monitoring due to decreased FM and inability to monitor. While US was being performed to try to find where to put NST, gross srom was noted. PNI: CSx1 Polyhydramnios Cholestasis Resolved low lying plac Past [employer] Hx: G1 2020 G2 2021 pCS G3 current denies hx stis Discharge Data Consultations 11/22/23 16:11 Consult Anesthesiology Stat Procedures Performed Operation Date: 11/22/23 19:30 Actual Procedures p Repeat Section. Live female child at 2156 - Latoya Boston MD Hospital Course (1) S/P : 28 yo at 35 4/7 wga presented for evaluation due to decreased movement. During triage, pt underwent SROM in the room. Given GA, she was recommended to proceed with delivery. She declined tubal sterilization. See operative report for details. Post-op, pharmacy was consulted for glycemic management. She developed cellulitis of pannus and started on keflex, the incision itself was noted to be not infected. She was discharged home with Keflex for the pannus cellulitis and planned to call endocrine office to manage oral diabetes medication. She is planned for 1 week incision check. She was discharged home on POD3 Coding Level of Care Code None Diagnoses S/P Z98.891
== END 2023-11-25 11:15 | disposition home or self-care (01) | DRG 786 ==
LOC: OPB 15:16 → 4S1 15:18 → 4E2 11-23 01:19
DX: O40.3XX0 Polyhydramnios, third trimester, not applicable or unspecified; O36.8130 Decreased fetal movements, third trimester, not applicable or unspecified; O24.02 Pre-existing type 1 diabetes mellitus, in childbirth; O34.219 Maternal care for unspecified type scar from previous cesarean delivery; Z3A.35 35 weeks gestation of pregnancy; L03.311 Cellulitis of abdominal wall; O60.14X0 Preterm labor third trimester with preterm delivery third trimester, not applicable or unspecified; Z37.0 Single live birth; E10.9 Type 1 diabetes mellitus without complications; O42.913 Preterm premature rupture of membranes, unspecified as to length of time between rupture and onset of labor, third trimester; O99.73 Diseases of the skin and subcutaneous tissue complicating the puerperium; Z23 Encounter for immunization